=== PATIENT | female | born 1935 | race Caucasian/White ===

== ENCOUNTER → 2023-11-15 10:29 | Outpatient (REF) | payer MEDICARE, SELFPAY ==
[2023-11-15 11:15] LABS: % Basophils 0.8 % (0-2); % Eosinophils 4.8 % (0-6); % Immature Granulocytes 0.3 % (0-0.5); % Lymphocytes 14.4 % (20.5-51.1); % Monocytes 6.3 % (1.7-9.3); % Neutrophils 73.4 % (42.2-75.2); Absolute Basophils 0.1 10^3/uL (0-0.2); Absolute Eosinophils 0.3 10^3/uL (0-0.7); Absolute Lymphocytes 0.9 10^3/uL (1.2-3.4); Absolute Monocytes 0.4 10^3/uL (0.1-0.6); Absolute Neutrophils 4.6 10^3/uL (1.4-6.5); Hemoglobin 12.6 g/dL (12.0-16.0); Mean Corp Hgb Conc. 32.3 g/dL (33.0-37.0); Mean Corpuscular Hgb 29.2 pg (27.0-31.0); Mean Corpuscular Volume 90.3 fL (81.0-99.0); Mean Platelet Volume 9.9 fL (7.4-10.4); Nucleated Red Blood Cells % 0 %; Platelet Count 153 10^3/uL (130-400); Red Blood Cell Count 4.32 10^6/uL (4.20-5.40); Red Cell Dist. Width 15.5 % (11.5-14.5); White Blood Cell Count 6.3 10^3/uL (4.8-10.8)
[2023-11-15 11:50] LABS: Glycohemoglobin (HgbA1c) 6.6 % (4.0-5.6)
[2023-11-15 12:00] LABS: ALT (SGPT) < 10 U/L (0-35); AST (SGOT) 16 U/L (14-36); Alkaline Phosphatase 107 U/L (38-126); Blood Urea Nitrogen 23 mg/dl (7-17); Calcium 9.5 mg/dl (8.4-10.2); Carbon Dioxide 21 mmol/L (22-30); Chloride 107 mmol/L (98-107); Glucose 111 mg/dl (70-99); Potassium 4.3 mmol/L (3.5-5.1); Sodium 138 mmol/L (135-145); Total Bilirubin 0.5 mg/dl (0.2-1.3); eGFR 48.63
[2023-11-15 12:18] LABS: TSH Reflex To Free T4 3.14 uIU/ml (0.47-4.68)
[2023-11-19 13:53] LABS: Albumin 3.75 g/dL (3.75-5.01); SPEP IFE Reflex Not Done
== END ==
LOC: REG 10:29
PROVIDERS: ATTENDING PHYSICIAN Internal Medicine
DX: E11.22 Type 2 diabetes mellitus with diabetic chronic kidney disease (principal); N18.32 Chronic kidney disease, stage 3b; R60.0 Localized edema; B02.9 Zoster without complications; R74.8 Abnormal levels of other serum enzymes; Z68.31 Body mass index [BMI] 31.0-31.9, adult
CPT/HCPCS: 36415; 80053; 83036; 84155; 84165; 84443; 85025

== ENCOUNTER 2023-11-28 15:45 | Inpatient (IN) | payer MEDICARE, SELFPAY ==
[2023-11-27] VITALS (12 sets, daily range): BP systolic 133–233; BP diastolic 54–148; BMI 30.6; BMI 29.4
[2023-11-27 17:09] LABS: % Basophils 0.7 % (0-2); % Eosinophils 3.2 % (0-6); % Immature Granulocytes 0.5 % (0-0.5); % Lymphocytes 13.3 % (20.5-51.1); % Monocytes 5.4 % (1.7-9.3); % Neutrophils 76.9 % (42.2-75.2); Absolute Basophils 0.1 10^3/uL (0-0.2); Absolute Eosinophils 0.3 10^3/uL (0-0.7); Absolute Lymphocytes 1.2 10^3/uL (1.2-3.4); Absolute Monocytes 0.5 10^3/uL (0.1-0.6); Absolute Neutrophils 6.8 10^3/uL (1.4-6.5); Hematocrit 43.4 % (37.0-47.0); Hemoglobin 14.2 g/dL (12.0-16.0); Mean Corp Hgb Conc. 32.7 g/dL (33.0-37.0); Mean Corpuscular Hgb 29.5 pg (27.0-31.0); Mean Corpuscular Volume 90.2 fL (81.0-99.0); Mean Platelet Volume 10.2 fL (7.4-10.4); Nucleated Red Blood Cells % 0 %; Platelet Count 156 10^3/uL (130-400); Red Blood Cell Count 4.81 10^6/uL (4.20-5.40); Red Cell Dist. Width 15.6 % (11.5-14.5); White Blood Cell Count 8.9 10^3/uL (4.8-10.8)
[2023-11-27 17:37] LABS: Urine Albumin 2+ (Neg - Trace); Urine Bilirubin Negative (Negative); Urine Character Clear (Clear); Urine Color Straw; Urine Glucose Negative (Negative); Urine Ketone Negative (Negative); Urine Leukocyte Negative (Negative); Urine Nitrite Positive (Negative); Urine Occult Blood Trace (Negative); Urine Urobilinogen Negative (Neg - 1+)
[2023-11-27 18:00] LABS: Urine Bacteria Few (Negative); Urine Red Blood Cell 0-2 /HPF (0-2)
[2023-11-27] MEDS: COZAAR 50 MG PO (18:38)
[2023-11-27] MEDS: ZOFRAN 4 MG IV (18:38)
[2023-11-27] MEDS: NSS 500 IV (18:39)
[2023-11-27 19:10] LABS: Blood Urea Nitrogen 22 mg/dl (7-17); Calcium 10.1 mg/dl (8.4-10.2); Carbon Dioxide 26 mmol/L (22-30); Chloride 99 mmol/L (98-107); Estimated Creatinine Clearance 47 ml/min; Glucose 128 mg/dl (70-99); Sodium 137 mmol/L (135-145); eGFR > 60.00
--- NOTE | 2023-11-27 19:54 | ED.GENMED ---
History of Present Illness
General
Chief Complaint: Change in Mental Status
Source: patient and family (daughter)
Time Seen by Provider: 11/27/23 15:33
Nursing documentation reviewed up to this point in time: agreed with
Travel History
Have you had any contact with someone who has COVID-19?: Unable to Answer
Do you have any symptoms of coronavirus? Fever > 100 degrees, chills, cough, shortness of breath, sore throat, loss of taste or smell, muscle aches, or headache?: Unable to Answer
History of Present Illness
History of Present Illness:
Patient to ED with complaint of weakness and fatigue. Daughter reports patient has not been eating, has not been taking her meds. Daughter noted weakness yesterday and feels symptoms are much worse today. No fever/chills, recent illness. Brought
to ED via EMS for eval.
Past History
Past History
ED Past Medical History: Cancer (Cervical cancer), GERD, HTN, Hypercholesterolemia, NIDDM, Hypothyroidism and Other (Edema, history of pericarditis, pneumonia, polyps, stage III kidney disease, Cellulitis, UTI, Vertigo, PNA,)
ED Past Surgical History: Appendectomy, Gynecological (Radical hysterectomy, lumpectomy), Orthopedic (Back surgery) and Other (Cataract surgery, Lumpectomy, )
Social History
Tobacco: Former smoker
Alcohol: None
Drug: None
Personal:
Living: alone
Employment: Retired
Family History
Family History: Other
Review of Systems
Review of Systems
Allergies reviewed?: Yes
All Other Systems: ROS reviewed and negative except as documented in HPI and ROS
Constitutional: Reports no symptoms
EENT: Reports no symptoms
Respiratory: Reports no symptoms
Cardiac: Reports no symptoms
ABD/GI: Reports nausea and anorexia
: Reports no symptoms
Musculoskeletal: Reports edema (chronic BLE edema)
Skin: Reports no symptoms
Neurological: Reports no symptoms
Psychiatric: Reports no symptoms
Phy Exam
General Physical Exam
General Presentation: mild distress
General age: appears stated age
General Skin: warm and dry
General Habitus: elderly and frail
General Mental: alert
General Hydration: dry mucous membranes
Cardiovascular Exam
Cardiovascular Exam: regular rate/rhythm
Pulmonary Exam
Pulmonary Exam: lungs clear and no respiratory distress
Gastrointestinal Exam
Gastrointestinal Exam: normal bowel sounds, non tender, soft and no organomegaly
Musculoskeletal Exam
Musculoskeletal Exam: full ROM and neuro vasc intact
Skin Exam
Skin Exam: normal color, warm/dry, no rash and other (Chronic BLE edema)
Psychiatric Exam
Psychiatric Exam: normal mood/affect
Course
Orders/Labs/Results
Orders:
Orders
11/27/23 15:55
Electrocardiogram (*1) Urgent
Reason for Study: Fatigue / Weakness
CT Head W/o Iv Contrast Urgent
Comment:
Reason For Exam: change in mental status
EKG- Treatment ONCE
11/27/23 16:58
Complete Blood Count/With Diff Urgent
Urinalysis Reflex To Culture Urgent
Date Specimen was Collected: 11/27/23
Time Specimen was Collected: 16:46
Urine Microscopic Reflex Cult Urgent
Urine Culture Urgent
MÓNICA Source: U
Specimen Description:
Date Specimen was Collected: 11/27/23
Time Specimen was Collected: 16:46
11/27/23 17:38
Ondansetron Injectable [Zofran] 4 mg IV NOW STA
11/27/23 17:39
0.9% Sodium Chloride 500 ml [Nss] 500 ml IV BOLUS
11/27/23 18:25
Losartan [Cozaar] 50 mg PO NOW STA
11/27/23 18:36
Basic Metabolic Panel Urgent
11/27/23 20:51
Admit/Transfer Patient As Directed
Co-Sign Provider:
Level of Care: Observation services
Assign to:: Medical/Surgical
Physician / Group: idania
Diagnosis: weakness
Code Status As Directed
Resuscitation Status: Do not resuscitate
Reached after discussion with pt or family/Healthcare POA: Yes
DNR Bracelet Application ONCE
11/27/23 20:54
CefTRIAXone [Rocephin] 1,000 mg IV NOW STA
11/27/23 20:55
Labetalol HCl [Trandate] 10 mg IV Q6HPRN PRN
11/27/23 20:57
Sterile Water [Sterile Water For Injection] 10 ml IV NOW STA
11/27/23 20:59
COVID-19 Antigen Urgent
Source: Nasal Swab
11/27/23 21:00
Flush (0.9% Sodium Chloride) [Flush (Nss)] See Dose Instructions IV PER PROTOCOL
Abnormal Lab Results
11/27/23 11/27/23
16:58 18:36
MCHC 32.7 L g/dL
(33.0-37.0)
RDW 15.6 H %
(11.5-14.5)
Absolute Neuts (auto) 6.8 H 10^3/uL
(1.4-6.5)
Neutrophils % 76.9 H %
(42.2-75.2)
Lymphocytes % 13.3 L %
(20.5-51.1)
BUN 22 H mg/dl
(7-17)
Glucose 128 H mg/dl
(70-99)
Ur Occult Blood Reflex Trace A
(Negative)
Urine Nitrite (Reflex) Positive A
(Negative)
Urine Bacteria (Reflex) Few A
(Negative)
Urine Albumin (Reflex) 2+ A
(Neg - Trace)
11/27/23 16:58
11/27/23 18:36
Vital Signs
Initial and Last Documented VS:
Initial Vital Signs
Temp Pulse Resp BP Pulse Ox
97.5 F 75 20 193/92 98
11/27/23 15:36 11/27/23 15:36 11/27/23 15:36 11/27/23 15:36 11/27/23 15:36
Last Documented Vital Signs
Temp Pulse Resp BP Pulse Ox
97.5 F 85 12 228/134 97
11/27/23 15:36 11/27/23 18:38 11/27/23 18:15 11/27/23 18:38 11/27/23 16:15
*Radiology
Radiology exam reviewed: radiology read reviewed
*Pulse Oximetry
Patient hypoxic: no
*Critical Care Note
Total Time (30-74mins, 75-104mins- exclusive of procedures): Not Applicable
Update Note
Update Note:
Hypertensive on arrival to ED. Daughter reports patient has not been taking her meds. SHe lives in independent living and is responsible for her own medication administration and has had issues with compliance in the past. She was given her dose
of Losartan in dept and BP is beginning to come down. SHe is visibly weak in dept and unable to care for self at this time. Will admit to hospitalist for weakness, fatigue, medication noncompliance.
ED Attending Note
-
Portions of this chart may have been created with voice recognition software.� Occasional wrong word or��sound alike� substitutions may have occurred due to the inherent limitations of voice recognition software.
Discharge Plan
Departure
Patient Disposition: Admit
Date of Disposition: 11/27/23
Time of Disposition: 20:04
Presentation/result/management discussed w/ accepting MD/DO: Hospitalist
Patient with high blood pressure during this ER visit?: Yes
Condition: Fair
Covid-19: Not Applicable
Discharge Problem:
Weakness
Prescriptions:
No Action
losartan 50 MG tablet
50 mg PO QPM
atorvastatin 40 MG tablet
40 mg PO HS
aspirin 81 MG tablet,delayed release (DR/EC)
81 mg PO DAILY
levothyroxine 50 MCG tablet
50 mcg PO DAILY
furosemide 20 MG tablet
20 mg PO SUTUWE
Patient Comments:
FAMILY CONCERN PATIENT DIDNT TAKE RIGHT MEDICATION, PER PCP PATIENT WAS TO STOP HCTZ 12.5MG AND START LASIX UNSURE IS TAKING BOTH OR THE HCTZ ( PER PCP HCTZ CAUSE HYPERCALCEMIA)
cholecalciferol (vitamin D3) 1,000 UNITS tablet
1,000 units PO DAILY
melatonin 3 MG tablet
6 mg PO HS
methenamine hippurate 1 gram tablet
1 g PO BID
famotidine [Pepcid] 20 mg Tablet
20 mg PO HS
ascorbic acid (vitamin C) [Vitamin C] 500 mg Tablet
500 mg PO DAILY
Myrbetriq 50 mg tablet extended release 24 hr
50 mg PO DAILY
Referrals:
Vianey Bailon NP [Family Provider] -
Interventions
Interventions:
*Risk Screen - Suicide Last Done: 11/27/23 15:33
*General Assessment Last Done: 11/27/23 15:33
*Neglect/Abuse Screening Last Done: 11/27/23 15:33
ED- Fall Risk Assessment Last Done: 11/27/23 15:36
*ED COVID-19 Vaccine History Last Done: 11/27/23 15:33
ED- Neurological Assessment Last Done: 11/27/23 15:35
ED Swallowing Screen Last Done: 11/27/23 17:30
Discharge Date and Time
Print Language: PALAUAN
--- NOTE | 2023-11-27 20:56 | HPS.HSE ---
Addendum entered and electronically signed by Linda Wiseman MD 11/27/23 20:59:
Check COVID.
Original Note:
Family Physician
-
Family Physician: Vianey Bailon
Chief Complaint
-
weakness
History of Present Illness
88-year-old female past medical history of cervical cancer, hypertension, GERD, hypercholesteremia, diabetes, hypothyroidism, CKD 3, presenting with weakness and fatigue. As per daughter patient has been feeling generally weaker over the past few
weeks. However over the past few days she has been significantly weaker as well as having hallucinations, slurred speech without any focal neurological symptoms. Patient has a history of urine incontinence and has been urinating very frequently
recently. She supposed to take Lasix however was not taking Lasix due to urinary incontinence which has resulted increased lower extremity edema. No fevers but is having chills. She did have some nausea today and an episode of vomiting. No
diarrhea. No abdominal pain. No new medications recently.
Patient also has a history of chronic itching and has developed some excoriations over her body for which she was prescribed steroid cream.
Patient has not been compliant with her medications recently.
Patient was treated for periorbital shingles around the left eye a month ago and has some residual headache around the eye after that.
No smoking or alcohol use.
Medical History
Past Medical History
Past Medical History: Reports Other (cervical cancer, hypertension, GERD, hypercholesteremia, diabetes, hypothyroidism, CKD 3)
Past Surgical History: Reports Other (Appendectomy, Gynecological (Radical hysterectomy, lumpectomy), Orthopedic (Back surgery) and Other (Cataract surgery, Lumpectomy, ))
Social History
Tobacco: Non-smoker
Alcohol: None
Drug: None
Family History
Family History: Not pertinent
Allergies / Home Medications
Allergies reflects when Allergies were last updated in [facility].
Home Medications with original date entered in [facility]
Allergy/Medication List:
Allergies
Allergy/AdvReac Type Severity Reaction Status Date / Time
latex Allergy Rash Verified 05/22/23 19:07
Home Medications
atorvastatin 40 mg tablet 40 mg PO HS High cholesterol 10/16/18
losartan 50 mg tablet 50 mg PO QPM Blood pressure 10/16/18
aspirin 81 mg tablet,delayed release 81 mg PO DAILY Blood clot prevention/tx 09/11/20
cholecalciferol (vitamin D3) 25 mcg (1,000 unit) tablet 1,000 units PO DAILY Supplement 09/11/20
furosemide 20 mg tablet 20 mg PO SUTUWE Fluid retention/Swelling 09/11/20
levothyroxine 50 mcg tablet 50 mcg PO DAILY Thyroid 09/11/20
melatonin 3 mg tablet 6 mg PO HS SLEEP 09/11/20
ascorbic acid (vitamin C) 500 mg tablet (Vitamin C) 500 mg PO DAILY 11/27/23
famotidine 20 mg tablet (Pepcid) 20 mg PO HS 11/27/23
methenamine hippurate 1 gram tablet 1 g PO BID 11/27/23
mirabegron 50 mg tablet,extended release 24 hr (Myrbetriq) 50 mg PO DAILY 11/27/23
Review of Systems
-
History Source: Patient
A 12 point ROS was completed and negative except as noted: Yes
Constitutional: Reports No Symptoms
EENT: Reports No Symptoms
Respiratory: Reports No Symptoms
Cardiac: Reports No Symptoms
Abdomen/GI: Reports No Symptoms
: Reports See HPI
Musculoskeletal: Reports No Symptoms
Skin: Reports No Symptoms
Neurological: Reports No Symptoms
Endocrine: Reports No Symptoms
Hematologic/Lymphatic: Reports No Symptoms
Psych: Reports No Symptoms
Physical Exam
Vital Signs
Vital Signs
Temp Pulse Resp BP Pulse Ox
97.5 F 85 12 228/134 97
11/27/23 15:36 11/27/23 18:38 11/27/23 18:15 11/27/23 18:38 11/27/23 16:15
Physical Exam
General: Well Developed, Well Nourished and No Apparent Distress
HEENT: NormoCephalic, Moist mucous membranes and Atraumatic
Respiratory: Clear
Cardiac: S1/S2 and Regular Rhythm; No Murmur or Rub
GI: Soft, Non Tender, Non Distended and Normal Bowel Sounds; No Organomegaly
Rectal: Deferred by Provider
Musculoskeletal: No Clubbing, No Cyanosis and No Edema
Skin: No Rash
Neuro: Nonfocal/grossly intact
Laboratory Results
-
11/27/23 16:58
11/27/23 18:36
Laboratory Results
Total Bilirubin Cancelled 11/27/23 18:36
AST Cancelled 11/27/23 18:36
ALT Cancelled 11/27/23 18:36
Alkaline Phosphatase Cancelled 11/27/23 18:36
Data Reviewed
-
Lab Data: Labs Reviewed by me
Old Records: Reviewed
Impression/Plan
-
IMPRESSION:
PLAN:
# Weakness/metabolic encephalopathy strongly suggestive of early UTI versus hypertensive encephalopathy due to medication noncompliance
-CT head shows no acute abnormality
-Urinalysis not suggestive of infection however symptoms strongly suggest UTI
-Check urine culture
-Empiric ceftriaxone dose
-Hold melatonin
-No focal deficits to suggest stroke, although consider MRI if all workup negative
# Hypertensive urgency due to medication noncompliance
-Continue prophylactic aspirin
-Resume losartan which she has not been compliant with
-As needed labetalol
# Diffuse body excoriation secondary to itching
-Continue steroid cream
Recent shingles around the left eye
-Completed treatment of month ago
History of cervical cancer
GERD
-Continue Pepcid
Hypercholesterolemia
-Continue statin
Type 2 diabetes
Hypothyroidism
-Continue levothyroxine
CKD 3
-Renal function at baseline
History of incontinence
-Continue Myrbetriq
-Bladder scan protocol
Lower extremity edema
-Continue Lasix
DNR/DNI
DVT prophylaxis�heparin
Regular diet
[2023-11-27] MEDS: ROCEPHIN 1000 MG IV (21:11)
[2023-11-27] MEDS: STERILE WATER FOR INJECTION 10 ML IV (21:12)
[2023-11-27] MEDS: TRANDATE 10 MG IV (21:16)
[2023-11-27] MEDS: FLUSH (NSS) 1 FLUSH IV (21:19)
[2023-11-27 21:46] LABS: COVID-19 Antigen Negative (Negative)
[2023-11-27] MEDS: PEPCID 20 MG PO (23:50)
[2023-11-27] MEDS: LIPITOR 40 MG PO (23:50)
--- NOTE | 2023-11-28 00:40 | PTCARENOTE ---
Patient received from the ED via stretcher. Patient pulled over onto the bed by staff. AAOx3 but forgetful. No complaints of pain at this time. VSS. Patient incontinent of stool and urine. Desenex ordered BID per nursing protocol for abdomen and
groin. Patient made comfortable. Call mora is within reach.
[2023-11-28] MEDS: SYNTHROID 50 MCG PO (05:06)
[2023-11-28 06:00] VITALS: BMI 29.5
[2023-11-28 07:25] LABS: % Basophils 0.6 % (0-2); % Eosinophils 1.7 % (0-6); % Immature Granulocytes 0.4 % (0-0.5); % Lymphocytes 16.9 % (20.5-51.1); % Monocytes 8.3 % (1.7-9.3); % Neutrophils 72.1 % (42.2-75.2); Absolute Basophils 0.1 10^3/uL (0-0.2); Absolute Eosinophils 0.1 10^3/uL (0-0.7); Absolute Lymphocytes 1.4 10^3/uL (1.2-3.4); Absolute Monocytes 0.7 10^3/uL (0.1-0.6); Absolute Neutrophils 5.8 10^3/uL (1.4-6.5); Hematocrit 37.1 % (37.0-47.0); Hemoglobin 12.2 g/dL (12.0-16.0); Mean Corp Hgb Conc. 32.9 g/dL (33.0-37.0); Mean Corpuscular Hgb 29.6 pg (27.0-31.0); Mean Platelet Volume 10.6 fL (7.4-10.4); Nucleated Red Blood Cells % 0 %; Platelet Count 157 10^3/uL (130-400); Red Blood Cell Count 4.12 10^6/uL (4.20-5.40); Red Cell Dist. Width 15.9 % (11.5-14.5); White Blood Cell Count 8.1 10^3/uL (4.8-10.8)
[2023-11-28 07:55] LABS: ALT (SGPT) 10 U/L (0-35); AST (SGOT) 14 U/L (14-36); Albumin 3.4 g/dl (3.5-5.0); Alkaline Phosphatase 93 U/L (38-126); Blood Urea Nitrogen 25 mg/dl (7-17); Calcium 9.3 mg/dl (8.4-10.2); Carbon Dioxide 27 mmol/L (22-30); Chloride 101 mmol/L (98-107); Estimated Creatinine Clearance 30 ml/min; Glucose 127 mg/dl (70-99); Potassium 4.1 mmol/L (3.5-5.1); Sodium 135 mmol/L (135-145); Total Bilirubin 0.6 mg/dl (0.2-1.3); Total Protein 6.3 g/dl (6.3-8.2); eGFR 36.41
[2023-11-28 08:06] VITALS: BP 140/61
[2023-11-28] MEDS: HEPARIN 5000 UNITS SC ×2 (08:55→20:23)
[2023-11-28] MEDS: ASPIR LOW (ENTERIC COATED) 81 MG PO (08:55)
[2023-11-28] MEDS: DETROL LA 4 MG PO (08:55)
[2023-11-28] MEDS: VITAMIN C 500 MG PO (08:55)
[2023-11-28] MEDS: VITAMIN D3 (cholecalciferol) 25 MCG PO (08:55)
[2023-11-28] MEDS: LASIX 20 MG PO (09:08)
[2023-11-28] MEDS: DESENEX/MITRAZOL/ZEASORB 1 APPLIC TOPICAL ×2 (09:09→20:25)
[2023-11-28 10:26] VITALS: BP 138/79; PULSE 79; O2SAT 98
[2023-11-28 10:39] VITALS: BP 138/79; PULSE 68; O2SAT 97
--- NOTE | 2023-11-28 11:14 | W.PN.HOSP.TC ---
Today's Communication/Plan
-
.
Assessment / Plan
Assessment / Plan
Physical Exam
General: Well Developed, Well Nourished and No Apparent Distress
HEENT: Normocephalic, Moist mucous membranes and Atraumatic
Respiratory: Clear
Cardiac: S1/S2 and Regular Rhythm; No Murmur or Rub
GI: Soft, Non Tender, Non Distended and Normal Bowel Sounds; No Organomegaly
Rectal: No rectal bleeding
Musculoskeletal: No Clubbing, No Cyanosis and No Edema
Skin: No Rash
Neuro: AAOX3, she followed commands.
Psych: no agitation
# Weakness/ Toxic metabolic encephalopathy strongly suggestive of early UTI versus hypertensive encephalopathy due to medication noncompliance
She feels better, less weak.
-Urinalysis is suggestive of infection.
- Urine culture is E coli
-c/w IV ceftriaxone dose
-Held melatonin
-No focal deficits to suggest stroke,
CT head showed moderate diffuse cerebral and cerebellar volume loss. Mild white matter leukoaraiosis in both cerebral hemispheres.
# Hypertensive urgency due to medication noncompliance
AM BP 140/61
-Continue prophylactic aspirin
-Resume losartan which she has not been compliant with
-As needed labetalol
# Diffuse body excoriation secondary to itching
-Continue steroid cream
Recent shingles around the left eye
-Completed treatment of month ago
Sometimes she experience pain in eye, will add PRN Gabapentin.
#History of cervical cancer
# NAFLD (nonalcoholic fatty liver disease)
#GERD
-Continue Pepcid
#Hypercholesterolemia
-Continue statin
#Type 2 diabetes history
HGB A1C was 6.6 on 11/15/23
No hypoglycemia
Not on TX.
Hypothyroidism
-Continue levothyroxine
# CKD 3b/ History of incontinence
IRENE today with creatinine at 1.4 from 0.9
Check bladder scan, renal US
Continue Myrbetriq
-Bladder scan protocol, will check with nursing staff
Lower extremity edema
-Continue Lasix
DNR/DNI
DVT prophylaxis�heparin
Regular diet
�Total time spent to see patient, examine the patient on the floor, review data and lab results, discuss treatment plan with patient, nursing staff around 55 minutes
Anticipated Discharge: > 48 hours
Subjective/Interval History
-
Date of Service: November 28, 2023
No chest pain
No sob
No abd pain
Objective Data
-
Labs:
Laboratory Results
11/28/23
06:42
WBC 8.1
Hgb 12.2
Hct 37.1
Plt Count 157
Sodium 135
Potassium 4.1
Chloride 101
Carbon Dioxide 27
BUN 25 H
Creatinine 1.4 H
Glucose 127 H
Calcium 9.3
Total Bilirubin 0.6
AST 14
ALT 10
Alkaline Phosphatase 93
Vital Signs:
Vital Signs
Temp Pulse Resp BP Pulse Ox
97.9 F 76 18 140/61 96
11/28/23 08:06 11/28/23 09:08 11/28/23 08:06 11/28/23 09:08 11/28/23 08:06
I&O
11/27/23 11/28/23 11/29/23
06:59 06:59 06:59
Intake Total 480 / 480
Balance 480 / 480
--- NOTE | 2023-11-28 15:30 | PTCARENOTE ---
patient was received in bed - awake, alert and verbally responsive with some forgetfulness. patient is hard of hearing and can make her needs known. patient did not have any behavioral/verbal indicators of discomfort or pain. patient continues to
have a good appetite for dinner. fluids encouraged throughout this nurse's shift. patient remains incontinent of bladder and and is provided incontinence care. patient's bed is in the lowest position possible with call mora, telephone and television
remote within reach
[2023-11-28 15:45] VITALS: BP 120/54
--- NOTE | 2023-11-28 16:43 | CM ---
Alert awake oriented patient who lives with at [facility] .She is independent in all activities of daily living.Offered VN she would like [facility].TRISTA Starkey at bedside .Fernandez letter explained given copy. Pt declined to sign.
Walker
[facility]
PCP Dr Bailon
PLAN Return to [facility] with [facility]
[2023-11-28 17:41] LABS: Glucose - Point of Care 127 mg/dl (70-99)
[2023-11-28] MEDS: COZAAR 50 MG PO (17:51)
[2023-11-28] MEDS: LIPITOR 40 MG PO (21:31)
[2023-11-28] MEDS: PEPCID 20 MG PO (21:31)
[2023-11-28 21:41] LABS: Glucose - Point of Care 116 mg/dl (70-99)
[2023-11-28 23:25] VITALS: BP 156/52
--- NOTE | 2023-11-29 05:13 | DOWNTIME ---
There was a [employer] Laboratory Technician Downtime on 11/29/2023 from 0100 to 11/29/2023 at 0439. Downtime documentation of patient's care, including medication administrations, has been reconciled in the electronic record per guidelines. Refer to the
patient's paper chart under the miscellaneous tab to see printed paper medication records and downtime forms.
[2023-11-29] MEDS: SYNTHROID 50 MCG PO (05:46)
[2023-11-29 06:00] VITALS: BMI 29.5
[2023-11-29 07:25] VITALS: BP 165/74
[2023-11-29 07:38] LABS: Glucose - Point of Care 111 mg/dl (70-99)
[2023-11-29] MEDS: VITAMIN C 500 MG PO (08:03)
[2023-11-29] MEDS: HEPARIN 5000 UNITS SC ×2 (08:03→19:44)
[2023-11-29] MEDS: ASPIR LOW (ENTERIC COATED) 81 MG PO (08:03)
[2023-11-29] MEDS: DETROL LA 4 MG PO (08:03)
[2023-11-29] MEDS: VITAMIN D3 (cholecalciferol) 25 MCG PO (08:03)
[2023-11-29] MEDS: DESENEX/MITRAZOL/ZEASORB 1 APPLIC TOPICAL ×2 (08:04→19:44)
[2023-11-29] MEDS: LASIX 20 MG PO (08:41)
[2023-11-29 09:24] LABS: Blood Urea Nitrogen 32 mg/dl (7-17); Calcium 9.1 mg/dl (8.4-10.2); Carbon Dioxide 27 mmol/L (22-30); Chloride 100 mmol/L (98-107); Estimated Creatinine Clearance 24 ml/min; Glucose 110 mg/dl (70-99); Potassium 4.9 mmol/L (3.5-5.1); Sodium 136 mmol/L (135-145); eGFR 28.84
[2023-11-29 10:06] LABS: Vitamin B12 348 pg/ml (239-931)
[2023-11-29 11:22] LABS: Glucose - Point of Care 133 mg/dl (70-99)
--- NOTE | 2023-11-29 11:35 | W.PN.HOSP.TC ---
Today's Communication/Plan
-
.
Assessment / Plan
Assessment / Plan
Physical Exam
General: Well Developed, Well Nourished and No Apparent Distress
HEENT: Normocephalic, Moist mucous membranes and Atraumatic
Respiratory: Clear
Cardiac: S1/S2 and Regular Rhythm; No Murmur or Rub
GI: Soft, Non Tender, Non Distended and Normal Bowel Sounds; No Organomegaly
Rectal: No rectal bleeding
Musculoskeletal: No Clubbing, No Cyanosis and No Edema
Skin: No Rash
Neuro: AAOX1-2, forgetful at times, she followed commands.
Psych: no agitation
# Weakness/ Toxic metabolic encephalopathy strongly suggestive of early UTI versus hypertensive encephalopathy due to medication noncompliance
per daughter, hx of progressive memory issues
She feels better, less weak.
-Urinalysis is suggestive of infection.
- Urine culture is E coli
-c/w IV ceftriaxone dose
-Held melatonin
-No focal deficits to suggest stroke,
CT head showed moderate diffuse cerebral and cerebellar volume loss. Mild white matter leukoaraiosis in both cerebral hemispheres.
WIll do MRI brain as per daughter, gait worsening in last few weeks.
# Hypertensive urgency due to medication noncompliance
AM BP 140/61
-Continue prophylactic aspirin
- will change to oral nifedipine for now due to worsening Creatinine
-As needed labetalol
# Diffuse body excoriation secondary to itching
-Continue steroid cream
Recent shingles around the left eye
-Completed treatment of month ago
Sometimes she experience pain in eye, will add PRN Gabapentin.
#History of cervical cancer
# NAFLD (nonalcoholic fatty liver disease)
#GERD
-Continue Pepcid
#Hypercholesterolemia
-Continue statin
#Type 2 diabetes history
HGB A1C was 6.6 on 11/15/23
No hypoglycemia
Not on TX.
Hypothyroidism
-Continue levothyroxine
# CKD 3b/ History of incontinence
IRENE today with creatinine at 1.7 from 0.9
Stop Losartan, star Nifedipine
Check bladder scan, will ask nurses t document
Renal US No hydronephrosis on either side. Bilateral nephrolithiasis without hydronephrosis.
Continue Myrbetriq
Lower extremity edema
-Continue Lasix
DNR/DNI
DVT prophylaxis�heparin
Regular diet
�Total time spent to see patient, examine the patient on the floor, review data and lab results, discuss treatment plan with patient, daughter, nursing staff around 57 minutes
Anticipated Discharge: 24 - 48 hours
Subjective/Interval History
-
Date of Service: November 29, 2023
No chest pain
No sob
No fevers
Objective Data
-
Labs:
Laboratory Results
11/29/23
07:18
Sodium 136
Potassium 4.9
Chloride 100
Carbon Dioxide 27
BUN 32 H
Creatinine 1.7 H
Glucose 110 H
Calcium 9.1
Vital Signs:
Vital Signs
Temp Pulse Resp BP Pulse Ox
97.3 F 73 18 156/52 98
11/29/23 07:25 11/29/23 08:41 11/29/23 07:25 11/29/23 08:41 11/29/23 10:34
I&O
11/28/23 11/29/23 11/30/23
06:59 06:59 06:59
Intake Total 480 / 480 1859
Balance 480 / 480 1859
[2023-11-29] MEDS: ROCEPHIN 1000 MG IV (11:59)
[2023-11-29] MEDS: STERILE WATER FOR INJECTION 10 ML IV (11:59)
[2023-11-29] MEDS: PROCARDIA XL (EXTENDED RELEASE) 30 MG PO (11:59)
[2023-11-29 15:15] VITALS: BP 136/73
[2023-11-29 16:47] LABS: Glucose - Point of Care 120 mg/dl (70-99)
[2023-11-29] MEDS: PEPCID 20 MG PO (19:44)
[2023-11-29] MEDS: LIPITOR 40 MG PO (19:44)
[2023-11-29 21:03] LABS: Glucose - Point of Care 133 mg/dl (70-99)
[2023-11-29 23:59] VITALS: BP 157/76
[2023-11-30] MEDS: SYNTHROID 50 MCG PO (05:52)
[2023-11-30 06:00] VITALS: BMI 29.0
[2023-11-30 07:43] LABS: Glucose - Point of Care 125 mg/dl (70-99)
[2023-11-30 08:13] VITALS: BP 150/73
[2023-11-30] MEDS: VITAMIN C 500 MG PO (09:08)
[2023-11-30] MEDS: ASPIR LOW (ENTERIC COATED) 81 MG PO (09:08)
[2023-11-30] MEDS: PROCARDIA XL (EXTENDED RELEASE) 30 MG PO (09:08)
[2023-11-30] MEDS: HEPARIN 5000 UNITS SC ×2 (09:09→19:59)
[2023-11-30] MEDS: DETROL LA 4 MG PO (09:09)
[2023-11-30] MEDS: VITAMIN D3 (cholecalciferol) 25 MCG PO (09:09)
[2023-11-30] MEDS: DESENEX/MITRAZOL/ZEASORB 1 APPLIC TOPICAL ×2 (09:10→19:58)
[2023-11-30 09:20] LABS: Blood Urea Nitrogen 32 mg/dl (7-17); Calcium 9.7 mg/dl (8.4-10.2); Carbon Dioxide 27 mmol/L (22-30); Chloride 98 mmol/L (98-107); Estimated Creatinine Clearance 29 ml/min; Glucose 128 mg/dl (70-99); Potassium 4.1 mmol/L (3.5-5.1); Sodium 136 mmol/L (135-145); eGFR 36.41
--- NOTE | 2023-11-30 09:27 | W.PN.HOSP.TC ---
Today's Communication/Plan
-
.
Assessment / Plan
Assessment / Plan
Physical Exam
General: Well Developed, Well Nourished and No Apparent Distress
HEENT: Normocephalic, Moist mucous membranes and Atraumatic
Respiratory: Clear
Cardiac: S1/S2 and Regular Rhythm; No Murmur or Rub
GI: Soft, Non Tender, Non Distended and Normal Bowel Sounds; No Organomegaly
Rectal: No rectal bleeding
Musculoskeletal: No Clubbing, No Cyanosis and No Edema
Skin: No Rash
Neuro: AAOX1-2, forgetful at times, she followed commands.
Psych: no agitation
# Weakness/ Toxic metabolic encephalopathy strongly suggestive of early UTI versus hypertensive encephalopathy due to medication noncompliance
per daughter, hx of progressive memory issues with some confusion and hallucination/paranoia at times, progressed over last 1-2 months.
She feels better, less weak.
-we treated UTI but doubt the culprit although it will certainly exacerbate confusion.
-Held melatonin
-No focal deficits to suggest stroke,
CT head showed moderate diffuse cerebral and cerebellar volume loss. Mild white matter leukoaraiosis in both cerebral hemispheres.
MRI brain with global advanced atrophy
I had long discussion with the daughter at bedside. She is concerned and requested neurology evaluation. Discussed with neurologist on-call, input appreciated
# Urinary tract infection with E. coli. Uncomplicated, continue with Rocephin
No fever. No leukocytosis. No dysuria or abdominal pain
Check bladder scan
# Chronic heart failure with preserved ejection fraction
c/w Lasix, change to Daily which will help with high BP, leg edema
No sob, No hypoxia.
No chest pain
Primary mottle lay up operator Dr Jay Smith.
# Hypertensive urgency due to medication noncompliance
AM BP 140/61
-Continue prophylactic aspirin
-Changed to oral nifedipine and continue with Lasix.
-As needed labetalol
# Diffuse body excoriation secondary to itching
-Continue steroid cream
Recent shingles around the left eye
-Completed treatment of month ago
Sometimes she experience pain in eye, will add PRN Gabapentin.
#History of cervical cancer
# NAFLD (nonalcoholic fatty liver disease)
#GERD
-Continue Pepcid
#Hypercholesterolemia
-Continue statin
#Type 2 diabetes history
HGB A1C was 6.6 on 11/15/23
No hypoglycemia
Not on TX.
Hypothyroidism
-Continue levothyroxine
# CKD 3b/ History of incontinence
IRENE today with creatinine at 1.7 from 0.9. Today is 1.4, good improvement
Stopped Losartan, she is on nifedipine
Check bladder scan, will ask nurses to document
Renal US No hydronephrosis on either side. Bilateral nephrolithiasis without hydronephrosis.
Continue Myrbetriq upon discharge
Lower extremity edema
-Continue Lasix
DNR/DNI
DVT prophylaxis�heparin
Regular diet
�Total time spent to see patient, examine the patient on the floor, review data and lab results, discuss treatment plan with patient, daughter, nursing staff around 67 minutes
Anticipated Discharge: 24 - 48 hours
Subjective/Interval History
-
Date of Service: November 30, 2023
No pain issues
no headache
daughter at bed side
Objective Data
-
Labs:
Laboratory Results
11/30/23
07:15
Sodium 136
Potassium 4.1
Chloride 98
Carbon Dioxide 27
BUN 32 H
Creatinine 1.4 H
Glucose 128 H
Calcium 9.7
Vital Signs:
Vital Signs
Temp Pulse Resp BP Pulse Ox
97.8 F 74 18 150/73 98
11/30/23 08:13 11/30/23 09:08 11/30/23 08:13 11/30/23 09:08 11/30/23 08:13
I&O
11/29/23 11/30/23 12/01/23
06:59 06:59 06:59
Intake Total 1860 / 0 960 / 960
Balance 1860 / 1860 960 / 960
--- NOTE | 2023-11-30 10:05 | CON.NEURO4 ---
Addendum entered and electronically signed by Best Liang MD 11/30/23 14:52:
I saw and evaluated the patient I reviewed the note by Vianey chung and agree with the findings the following comments:
88-year-old woman with a past ministry of cervical cancer, GERD, hyperlipidemia diabetes hypothyroidism and CKD presented to hospital on 11/26 with generalized weakness fatigue confusion and hallucinations. She has had some mild degree of agitation
and confusion here in the hospital which is not her norm. Daughter noticed that her mental status has not been quite right for the past 1 to 2 weeks, still not currently at baseline.
Patient lives on her own at [facility] and is in an independent apartment. Daughter reports that she has been having some Eh about some difficulty with short-term memory difficulties and asking repeated questions and reminding of things and
also has some concerns that she might be taking her medications improperly or forgetting to do so. Patient has been a bit anxious and depressed here in the hospital as well sometimes irritable.
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. She had moved to [facility] around 3 years ago there have been some concerns about a fall as
well as it being an easier place to live for her.
Neurologic examination patient is wide-awake and alert conversant there is no evidence of aphasia she obeys commands briskly comprehends three-step commands and commands crossing the midline with no evidence of neglect praxis is normal. She has
some difficulty in more complex commands with some difficulty reciting the months of the year backwards demonstrating some inattention. She is oriented to president and previous presidents. Fund of knowledge is good.
Cranial nerves motor function and reflexes all
Brain MRI with no acute or chronic infarcts there is advanced global atrophy does not appear to be out of proportion to the patient's age no evidence of subdural hematoma or ventriculomegaly/hydrocephalus
Assessment: By history suspicious for a baseline mild cognitive impairment, most likely there is a urinary tract infection producing some delirium on top of this.
Recommendations
-Minimize sedating medications here as able
-Attempted trying to keep a regular sleep schedule with stimulation and sunlight during the day and avoiding naps during the day
-Set the expectation that delirium can sometimes take days to several weeks to resolve and does not always completely resolve
-Nonurgently would obtain neurology follow-up in approximately 6 to 8 weeks where we would do some further memory testing (MMSE or Colbert)
Original Note:
Consultation - Neurology 4
-
CONSULTING PHYSICIAN: Dr. Liang
REFERRING PHYSICIAN: Dr. Dodson
DICTATED BY: MICHELLE Price
DATE/TIME OF REQUEST: 11/30/2023 0800
DATE/TIME OF CONSULTATION: 11/30/2023 1005
Reason for Consultation: increased confusion
History of Present Illness:
This is a 88 year old female patient with past medical history of cervical cancer, hypertension, GERD, hyperlipidemia, diabetes Hypothyroidism, and CKD 3 who presented to the hospital on 11/27/2023 with increased confusion generalized weakness
fatigue and hallucinations. Daughter reported that symptoms had started over the past few weeks. She does have a history of urinary incontinence and stopped taking her Lasix due to this. She may have also been noncompliant with her other
medications. She was found to have a UTI as well as significant hypertension while in the ER. Since admission she has continued to have increased confusion concerning her daughter. Patient reports she is having recall of suppressed memories
causing increased anxiety. CT of the head and MRI of the brain not showing structural cause for acute confusion. Prior to recent weeks she was independent. She does live at [facility] but is in an independent apartment. Daughter reports that
she has been paying her own bills and takes care of all ADLs on her own. Per nursing and daughter she is having hard time following directions and is impulsive. Per daughter memory has not been an issue.
Past Medical History
Past Medical History: Reports Other (cervical cancer, hypertension, GERD, hypercholesteremia, diabetes, hypothyroidism, CKD 3)
Past Surgical History: Reports Other (Appendectomy, Gynecological (Radical hysterectomy, lumpectomy), Orthopedic (Back surgery) and Other (Cataract surgery, Lumpectomy, ))
Social History
Tobacco: Non-smoker
Alcohol: None
Drug: None
Lives in an independent apartment at [facility]
Family History
Family History: Not pertinent
Allergies: latex
Home Medications: see below
Review of Symptoms:
Patient denies any fever, headache, chest pain, shortness of breath, GI or symptoms.
Vital Signs:
see below
Physical Exam:
The patient is afebrile, heart sounds S1 and S2 are regular, no dyspnea.
Neurologic Examination:
The patient is awake, alert and oriented x 3. She is able to follow commands and answer most questions appropriately. There is no aphasia or dysarthria. Tangential at times. On cranial nerve assessment, pupils are 3 mm bilateral, round and
reactive to light and accommodation. Visual cooley are full. Extraocular movements are intact. Facial sensations are intact and bilaterally symmetrical, there is no facial asymmetry. Hearing is intact bilaterally to normal conversation volume.
Tongue palate and uvula are midline. Sternocleidomastoid strengths are full bilaterally. Motor strengths are 5/5 bilateral upper and lower extremities on medical research Gipsy scale. There is no drift or involuntary movement noted. Deep tendon
reflexes are 1+ bilateral upper and lower extremities and Babinski is absent bilaterally. Sensations of pain, touch, temperature and vibration are intact and bilaterally symmetrical. There was no extinction noted on double simultaneous stimulation.
Coordination is intact by finger to nose bilaterally.
Lab Results: see below
Neuro Imaging:
CT head-
MRI Brain 11/29/2023-
No acute infarct. Stable advanced global atrophy.
Relatively minor chronic microvascular white matter senescent changes.
Impression:
JUAN FARRELL is a 88 year old F who has presented to the hospital with increased weakness and confusion.
Differentials for the patient's presentation include likely TME in the setting of UTI and underlying cognitive deficits. MRI brain with acute no structural cause change of confusion
Recommendations:
-Reviewed MRI with no acute structural cause of confusion
-No further neurologic imaging/studies needed at this time
-Antibiotics and treatment of UTI per primary medical team
-goal normotension
-start B12 supplementation as B12 level 348
-Continue PT/OT and speech therapy
-Will likely benefit from outpatient neuropsychological testing and possible memory stabilizing medications
-follow up with neurology as an outpatient in 6-8 weeks
Discussed patient care with: Dr. Liang, patient, nursing and daughter
Medication and Allergies
Home Medications
Home Medications
�Medication �Instructions �Recorded
atorvastatin 40 mg tablet 40 mg PO HS High cholesterol 10/16/18
losartan 50 mg tablet 50 mg PO QPM Blood pressure 10/16/18
aspirin 81 mg tablet,delayed 81 mg PO DAILY Blood clot 09/11/20
release prevention/tx
cholecalciferol (vitamin D3) 25 1,000 units PO DAILY Supplement 09/11/20
mcg (1,000 unit) tablet
furosemide 20 mg tablet 20 mg PO SUTUWE Fluid 09/11/20
retention/Swelling
levothyroxine 50 mcg tablet 50 mcg PO DAILY Thyroid 09/11/20
melatonin 3 mg tablet 6 mg PO HS SLEEP 09/11/20
ascorbic acid (vitamin C) 500 mg 500 mg PO DAILY Supplement 11/27/23
tablet (Vitamin C)
famotidine 20 mg tablet (Pepcid) 20 mg PO HS Gastrointestinal Issue 11/27/23
methenamine hippurate 1 gram tablet 1 g PO BID Urinary Issue 11/27/23
mirabegron 50 mg tablet,extended 50 mg PO DAILY Urinary Issue 11/27/23
release 24 hr (Myrbetriq)
Allergies
Allergies
Allergy/AdvReac Type Severity Reaction Status Date / Time
latex Allergy Rash Verified 05/22/23 19:07
Vital Signs and Labs
-
Vital Signs and Labs:
Vital Signs
Temp Pulse Resp BP Pulse Ox
97.8 F 74 18 150/73 98
11/30/23 08:13 11/30/23 09:08 11/30/23 08:13 11/30/23 09:08 11/30/23 08:13
Lab Results
11/28/23 06:42
11/30/23 07:15
Sodium 136 mmol/L (135-145) 11/30/23 07:15
Potassium 4.1 mmol/L (3.5-5.1) 11/30/23 07:15
BUN 32 mg/dl (7-17) H 11/30/23 07:15
Glucose 128 mg/dl (70-99) H 11/30/23 07:15
Calcium 9.7 mg/dl (8.4-10.2) 11/30/23 07:15
Vitamin B12 348 pg/ml (239-931) 11/29/23 07:18
[2023-11-30] MEDS: STERILE WATER FOR INJECTION 10 ML IV (12:00)
[2023-11-30] MEDS: ROCEPHIN 1000 MG IV (12:00)
[2023-11-30 12:12] LABS: Glucose - Point of Care 123 mg/dl (70-99)
[2023-11-30] MEDS: VITAMIN B-12 1000 MCG PO (14:54)
--- NOTE | 2023-11-30 16:11 | CM ---
PT OT recommended [facility] at [facility]
Spoke with pt rodrigue and david about PT OT.
Pt did consent to going to [facility] for private room rehab.
She has medicare.
PLAN To [facility] when medically ready
[2023-11-30 16:19] VITALS: BP 138/53
[2023-11-30 16:28] LABS: Glucose - Point of Care 169 mg/dl (70-99)
[2023-11-30] MEDS: LIPITOR 40 MG PO (19:59)
[2023-11-30] MEDS: PEPCID 20 MG PO (19:59)
[2023-11-30 21:20] LABS: Glucose - Point of Care 135 mg/dl (70-99)
[2023-11-30 23:55] VITALS: BP 152/68
[2023-12-01 06:00] VITALS: BMI 29.1
[2023-12-01] MEDS: SYNTHROID 50 MCG PO (06:03)
[2023-12-01 07:30] LABS: Glucose - Point of Care 121 mg/dl (70-99)
[2023-12-01 07:50] LABS: Blood Urea Nitrogen 29 mg/dl (7-17); Calcium 9.3 mg/dl (8.4-10.2); Carbon Dioxide 27 mmol/L (22-30); Chloride 103 mmol/L (98-107); Estimated Creatinine Clearance 32 ml/min; Glucose 118 mg/dl (70-99); Potassium 4.1 mmol/L (3.5-5.1); Sodium 135 mmol/L (135-145)
[2023-12-01 08:15] VITALS: BP 173/66
[2023-12-01] MEDS: PROCARDIA XL (EXTENDED RELEASE) 30 MG PO (09:13)
[2023-12-01] MEDS: ASPIR LOW (ENTERIC COATED) 81 MG PO (09:14)
[2023-12-01] MEDS: DETROL LA 4 MG PO (09:14)
[2023-12-01] MEDS: HEPARIN 5000 UNITS SC (09:15)
[2023-12-01] MEDS: VITAMIN D3 (cholecalciferol) 25 MCG PO (09:15)
[2023-12-01] MEDS: VITAMIN C 500 MG PO (09:15)
[2023-12-01] MEDS: VITAMIN B-12 1000 MCG PO (09:16)
[2023-12-01] MEDS: LASIX 20 MG PO (09:17)
[2023-12-01] MEDS: DESENEX/MITRAZOL/ZEASORB 1 APPLIC TOPICAL (09:17)
--- NOTE | 2023-12-01 11:23 | W.PN.HOSP.TC ---
Addendum entered and electronically signed by Helena Dodson MD 12/01/23 13:43:
Addendum
Met with daughter at the bedside. Discharge directions discussed with family.
Discussed with neurologist earlier, discharge plan discussed with case reviewer.
Total discharge time spent to see patient, examine the patient on the floor, review data and lab results, discuss discharge plan with patient, daughter nursing staff around 65 minutes
Original Note:
Today's Communication/Plan
-
dc
Assessment / Plan
Assessment / Plan
Physical Exam
General: Well Developed, Well Nourished and No Apparent Distress
HEENT: Normocephalic, Moist mucous membranes and Atraumatic
Respiratory: Clear
Cardiac: S1/S2 and Regular Rhythm; No Murmur or Rub
GI: Soft, Non Tender, Non Distended and Normal Bowel Sounds; No Organomegaly
Rectal: No rectal bleeding
Musculoskeletal: No Clubbing, No Cyanosis and No Edema
Skin: No Rash
Neuro: AAOX1-2, forgetful at times, she followed commands.
Psych: no agitation
# Weakness/ Toxic metabolic encephalopathy strongly suggestive of early UTI versus hypertensive encephalopathy due to medication noncompliance
She seems to approach her baseline. No agitation. No delirium.
Suspect underlying mild cognitive impairment with some delirium from both UTI and hospitalization. Cannot rule out possible Alzheimer's dementia. Cognitive function and subsequent diagnoses
Patient reports that hospital was making her uncomfortable and confused more
She feels better, less weak.
-we treated UTI .
-Held melatonin
-No focal deficits to suggest stroke,
CT head showed moderate diffuse cerebral and cerebellar volume loss. Mild white matter leukoaraiosis in both cerebral hemispheres.
MRI brain with global advanced atrophy
Appreciate neurology input
# Urinary tract infection with E. coli. Uncomplicated, continue with Rocephin
No fever. No leukocytosis. No dysuria or abdominal pain
No retention on bladder scan
# Chronic heart failure with preserved ejection fraction
c/w Lasix, changed to Daily which will help with high BP, leg edema
No sob, No hypoxia.
No chest pain
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
# Hypertensive urgency due to medication noncompliance
AM BP 173/66. Will increase nifedipine. Continue with daily Lasix for now. Stop losartan with good improvement in creatinine
-Continue prophylactic aspirin
-Changed to oral nifedipine and continue with Lasix.
-As needed labetalol
# Diffuse body excoriation secondary to itching
-Continue steroid cream
Recent shingles around the left eye
-Completed treatment of month ago
Sometimes she experience pain in eye, will add PRN Gabapentin.
#History of cervical cancer
# NAFLD (nonalcoholic fatty liver disease)
#GERD
-Continue Pepcid
#Hypercholesterolemia
-Continue statin
#Type 2 diabetes history
HGB A1C was 6.6 on 11/15/23
No hypoglycemia
Not on TX.
Hypothyroidism
-Continue levothyroxine
# CKD 3b/ History of incontinence
IRENE creatinine went up to 1.7 from 0.9. Today is 1.3, good improvement
Stopped Losartan, she is on nifedipine
No retention on bladder scan
Renal US No hydronephrosis on either side. Bilateral nephrolithiasis without hydronephrosis.
Continue Myrbetriq upon discharge
Lower extremity edema
-Continue Lasix
DNR/DNI
DVT prophylaxis�heparin
Regular diet
�Total time spent to see patient, examine the patient on the floor, review data and lab results, discuss treatment plan with patient, nursing staff around 57 minutes
Anticipated Discharge: Today
Subjective/Interval History
-
Date of Service: December 01, 2023
No pain in chest r abdomen
Pt wants to leave the hospital because it is making her confused and uncomfortable
Objective Data
-
Labs:
Laboratory Results
12/01/23
06:35
Sodium 135
Potassium 4.1
Chloride 103
Carbon Dioxide 27
BUN 29 H
Creatinine 1.3 H
Glucose 118 H
Calcium 9.3
Vital Signs:
Vital Signs
Temp Pulse Resp BP Pulse Ox
98 F 75 16 173/66 95
12/01/23 08:15 12/01/23 08:15 12/01/23 08:15 12/01/23 08:15 12/01/23 08:15
I&O
11/30/23 12/01/23 12/02/23
06:59 06:59 06:59
Intake Total 960 / 960 1140 / 1140
Balance 960 / 960 1140 / 1140
[2023-12-01] MEDS: STERILE WATER FOR INJECTION 10 ML IV (11:48)
[2023-12-01] MEDS: ROCEPHIN 1000 MG IV (11:48)
[2023-12-01 11:55] LABS: Glucose - Point of Care 107 mg/dl (70-99)
--- NOTE | 2023-12-01 12:41 | CM ---
Patient seen at bedside with daughter also present. Patient signed IMM and copy placed on chart. Please call report to [phone]. Patient daughter to transport patient via car. CM notified physician that patient daughter would like
a call and update, CM will continue to follow for discharge planning needs.
Plan; transfer to [facility] today.
--- NOTE | 2023-12-01 13:31 | W.DCSUMMARY ---
Discharge Summary
Discharge Data
Date of Admission: 11/28/23
Date of Discharge: 12/01/23
-
Pending Results: No
Hospital Course
88 years old female presented to the emergency room with weakness and ambulatory dysfunction. Family reported progressive memory issues and confusion at home. Initial diagnosis was possible mild cognitive impairment with some delirium from urine
tract infection. Patient had scan of the head that showed diffuse cerebral and cerebellar volume loss with white matter leukoaraiosis in both cerebral hemispheres. Magnetic resonance imaging of the brain showed global advanced atrophy. Urine
culture came back positive with Escherichia coli. Patient did not have fever or leukocytosis. No dysuria. Patient received intravenous Rocephin in the hospital. Patient's confusion did not improve much. She was evaluated by neurologist.
Diagnosis possible cognitive impairment that was worsened by urinary tract infection and hospitalization. Patient did not have agitation or combativeness. Patient was diagnosed with a chronic heart failure with a preserved ejection fraction. She
was noticed to have increasing bilateral leg swelling with no signs of cellulitis. She was also noticed to have uncontrolled high blood pressure. History of noncompliance to her medications at home. She had acute kidney injury. Losartan was
stopped and she was started on nifedipine with better control of blood pressure. Her Lasix was made as 20 mg daily. Bilateral leg swelling improved and patient felt better. No history of chest pain. No hypoxia. Patient remained hemodynamically
stable. She did not have retention on bladder scan. She was advised to finish 7 days course of antibiotic for urine tract infection. Kidney function improved with creatinine 1.3 upon discharge. Patient was evaluated by physical therapy and was
recommended to seek shelter facility placement. Discharge instructions and recommendations were discussed with her daughter. Family and patient were advised to follow-up with neurologist and sander portable machine Dr. Jay Smith in near
future. They verbalized understanding. Patient was discharged in a stable condition.
Discharge Plan
-
Patient Disposition: Fdc/SNF
Discharge Diagnosis/Procedures: Urinary tract infection, uncomplicated, finish Ceftin course.
Mild cognitive impairment, seen by neurologist, for OP follow up. No Strokes.
Ambulatory dysfunction.
Acute kidney injury, creatinine 1.3 upon discharge.
Uncontrolled hypertension, losartan was stopped for now and started on low-dose nifedipine.
Chronic heart failure with a preserved ejection fraction, continue Lasix daily. Blood work in 3- 5 days
Condition: Good
Diet: 2 Gram Sodium
Blood Work: BMP in 3- 5 days
Referrals:
Best Liang MD [Active] - in one month
Jay Smith MD [Active] - in two to three weeks
Vianey Bailon NP [Family Provider] - in one to two weeks
Prescriptions:
New
acetaminophen [Tylenol Extra Strength] 500 mg Tablet
1,000 mg PO Q6HPRN PRN (Reason: mild to mod pain) Qty: 10 0RF
nifedipine 30 mg Tablet Extended Release
30 mg PO DAILY Qty: 30 0RF
furosemide 20 mg Tablet
20 mg PO DAILY Qty: 30 0RF
cyanocobalamin (vitamin B-12) 1,000 mcg Tablet
1,000 mcg PO DAILY Qty: 30 0RF
cefuroxime axetil 250 mg tablet
250 mg PO BID Qty: 8 0RF
Continued
atorvastatin 40 MG tablet
40 mg PO HS
aspirin 81 MG tablet,delayed release (DR/EC)
81 mg PO DAILY
levothyroxine 50 MCG tablet
50 mcg PO DAILY
cholecalciferol (vitamin D3) 1,000 UNITS tablet
1,000 units PO DAILY
melatonin 3 MG tablet
6 mg PO HS
methenamine hippurate 1 gram tablet
1 g PO BID
famotidine [Pepcid] 20 mg Tablet
20 mg PO HS
ascorbic acid (vitamin C) [Vitamin C] 500 mg Tablet
500 mg PO DAILY
Myrbetriq 50 mg tablet extended release 24 hr
50 mg PO DAILY
Discontinued
losartan 50 MG tablet
50 mg PO QPM
furosemide 20 MG tablet
20 mg PO SUTUWE
Patient Comments:
FAMILY CONCERN PATIENT DIDNT TAKE RIGHT MEDICATION, PER PCP PATIENT WAS TO STOP HCTZ 12.5MG AND START LASIX UNSURE IS TAKING BOTH OR THE HCTZ ( PER PCP HCTZ CAUSE HYPERCALCEMIA)
Discharge Orders:
Discharge Patient (As Directed); Ordered 12/01/23
Ordered By: Helena Dodson
Discharge Date and Time
Print Language: TURKMEN
--- NOTE | 2023-12-01 13:48 | PTCARENOTE ---
Report called to nursing staff at [facility]. Daughter at bedside and will transport patient.
--- NOTE | 2023-12-01 14:32 | PTCARENOTE ---
Peripheral IV removed. Patient and daughter aware of plan for her to go to [facility] today.
== END 2023-12-01 15:58 | DRG 77 ==
LOC: 4 EAST ACU 15:45
PROVIDERS: Nurse Practitioner; ADMITTING PHYSICIAN Hospitalist; ATTENDING PHYSICIAN Internal Medicine; CONSULT PHYSICIAN Student in an Organized Health Care Education/Training Program; EMERGENCY PHYSICIAN Emergency Medicine; FAMILY PHYSICIAN Internal Medicine
DX: I67.4 Hypertensive encephalopathy (principal); G92.8 Other toxic encephalopathy; N39.0 Urinary tract infection, site not specified; N17.9 Acute kidney failure, unspecified; I50.32 Chronic diastolic (congestive) heart failure; I13.0 Hypertensive heart and chronic kidney disease with heart failure and stage 1 through stage 4 chronic kidney disease, or unspecified chronic kidney disease; I16.0 Hypertensive urgency; E03.9 Hypothyroidism, unspecified; E11.22 Type 2 diabetes mellitus with diabetic chronic kidney disease; B96.20 Unspecified Escherichia coli [E. coli] as the cause of diseases classified elsewhere; K76.0 Fatty (change of) liver, not elsewhere classified; N18.32 Chronic kidney disease, stage 3b; R26.2 Difficulty in walking, not elsewhere classified; E78.00 Pure hypercholesterolemia, unspecified; K21.9 Gastro-esophageal reflux disease without esophagitis; Z66 Do not resuscitate; Z85.41 Personal history of malignant neoplasm of cervix uteri; Z91.148 Patient's other noncompliance with medication regimen for other reason; Z79.890 Hormone replacement therapy; Z11.52 Encounter for screening for COVID-19; Z91.040 Latex allergy status; Z91.199 Patient's noncompliance with other medical treatment and regimen due to unspecified reason; Z87.891 Personal history of nicotine dependence
CPT/HCPCS: 70450; 70551; 76775; 80048; 80053; 81003; 81015; 82607; 82962; 85025; 87070; 87077; 87086; 87186; 87811; 93005; 97116; 97162; 97166; 99285

== ENCOUNTER → 2023-12-04 12:33 | Outpatient (REF) | payer OTHER, MEDICARE, SELFPAY ==
[2023-12-04 13:57] LABS: Blood Urea Nitrogen 33 mg/dl (7-17); Calcium 8.5 mg/dl (8.4-10.2); Carbon Dioxide 24 mmol/L (22-30); Chloride 106 mmol/L (98-107); Glucose 109 mg/dl (70-99); Potassium 4.1 mmol/L (3.5-5.1); Sodium 134 mmol/L (135-145); eGFR 43.81
== END ==
LOC: OLABP 12:33
PROVIDERS: ATTENDING PHYSICIAN Family Medicine
DX: G92.8 Other toxic encephalopathy (principal); M62.81 Muscle weakness (generalized); R26.2 Difficulty in walking, not elsewhere classified; N39.0 Urinary tract infection, site not specified; B96.20 Unspecified Escherichia coli [E. coli] as the cause of diseases classified elsewhere; N18.32 Chronic kidney disease, stage 3b; I13.0 Hypertensive heart and chronic kidney disease with heart failure and stage 1 through stage 4 chronic kidney disease, or unspecified chronic kidney disease; Z85.41 Personal history of malignant neoplasm of cervix uteri; I50.30 Unspecified diastolic (congestive) heart failure; K21.9 Gastro-esophageal reflux disease without esophagitis; E78.5 Hyperlipidemia, unspecified; E11.9 Type 2 diabetes mellitus without complications; E03.9 Hypothyroidism, unspecified
CPT/HCPCS: 36415; 80048

== ENCOUNTER → 2023-12-05 11:35 | Outpatient (REF) | payer OTHER, MEDICARE, SELFPAY ==
[2023-12-05 12:00] LABS: % Basophils 0.8 % (0-2); % Eosinophils 4.5 % (0-6); % Immature Granulocytes 0.3 % (0-0.5); % Lymphocytes 15.5 % (20.5-51.1); % Monocytes 5.6 % (1.7-9.3); % Neutrophils 73.3 % (42.2-75.2); Absolute Basophils 0.1 10^3/uL (0-0.2); Absolute Eosinophils 0.4 10^3/uL (0-0.7); Absolute Lymphocytes 1.4 10^3/uL (1.2-3.4); Absolute Monocytes 0.5 10^3/uL (0.1-0.6); Absolute Neutrophils 6.8 10^3/uL (1.4-6.5); Hematocrit 39.1 % (37.0-47.0); Hemoglobin 12.5 g/dL (12.0-16.0); Mean Corpuscular Hgb 29.6 pg (27.0-31.0); Mean Corpuscular Volume 92.4 fL (81.0-99.0); Mean Platelet Volume 11.3 fL (7.4-10.4); Nucleated Red Blood Cells % 0 %; Platelet Count 150 10^3/uL (130-400); Red Blood Cell Count 4.23 10^6/uL (4.20-5.40); Red Cell Dist. Width 15.1 % (11.5-14.5); White Blood Cell Count 9.3 10^3/uL (4.8-10.8)
[2023-12-05 12:39] LABS: ALT (SGPT) < 10 U/L (0-35); AST (SGOT) 16 U/L (14-36); Albumin 3.5 g/dl (3.5-5.0); Alkaline Phosphatase 109 U/L (38-126); Blood Urea Nitrogen 30 mg/dl (7-17); Calcium 8.6 mg/dl (8.4-10.2); Carbon Dioxide 26 mmol/L (22-30); Chloride 104 mmol/L (98-107); Glucose 122 mg/dl (70-99); Potassium 4.2 mmol/L (3.5-5.1); Sodium 136 mmol/L (135-145); Total Bilirubin 0.5 mg/dl (0.2-1.3); Total Protein 6.6 g/dl (6.3-8.2); eGFR 48.63
== END ==
LOC: OLABP 11:35
PROVIDERS: ATTENDING PHYSICIAN Family Medicine
DX: G92.8 Other toxic encephalopathy (principal); M62.81 Muscle weakness (generalized); R26.2 Difficulty in walking, not elsewhere classified; N39.0 Urinary tract infection, site not specified; B96.20 Unspecified Escherichia coli [E. coli] as the cause of diseases classified elsewhere; I13.0 Hypertensive heart and chronic kidney disease with heart failure and stage 1 through stage 4 chronic kidney disease, or unspecified chronic kidney disease; I50.30 Unspecified diastolic (congestive) heart failure; K21.9 Gastro-esophageal reflux disease without esophagitis; E78.5 Hyperlipidemia, unspecified; E11.9 Type 2 diabetes mellitus without complications; E03.9 Hypothyroidism, unspecified; N18.32 Chronic kidney disease, stage 3b; Z85.41 Personal history of malignant neoplasm of cervix uteri
CPT/HCPCS: 36415; 80053; 85025

== ENCOUNTER → 2023-12-18 17:13 | Outpatient (REF) | payer MEDICARE, OTHER, SELFPAY | LOC: RAD 17:13 | PROVIDERS: ATTENDING PHYSICIAN Internal Medicine | DX: N39.0 Urinary tract infection, site not specified (principal); R05.1 Acute cough; R09.89 Other specified symptoms and signs involving the circulatory and respiratory systems | CPT/HCPCS: 71046 ==

== ENCOUNTER → 2024-01-31 09:52 | Outpatient (REF) | payer MEDICARE, SELFPAY ==
[2024-01-31 10:46] LABS: % Basophils 0.6 % (0-2); % Eosinophils 3.9 % (0-6); % Immature Granulocytes 0.5 % (0-0.5); % Lymphocytes 12.4 % (20.5-51.1); % Monocytes 5.9 % (1.7-9.3); % Neutrophils 76.7 % (42.2-75.2); Absolute Basophils 0.1 10^3/uL (0-0.2); Absolute Eosinophils 0.3 10^3/uL (0-0.7); Absolute Lymphocytes 1.1 10^3/uL (1.2-3.4); Absolute Monocytes 0.5 10^3/uL (0.1-0.6); Absolute Neutrophils 6.5 10^3/uL (1.4-6.5); Hematocrit 35.7 % (37.0-47.0); Hemoglobin 11.7 g/dL (12.0-16.0); Mean Corp Hgb Conc. 32.8 g/dL (33.0-37.0); Mean Corpuscular Hgb 29.3 pg (27.0-31.0); Mean Corpuscular Volume 89.3 fL (81.0-99.0); Mean Platelet Volume 9.8 fL (7.4-10.4); Nucleated Red Blood Cells % 0 %; Platelet Count 184 10^3/uL (130-400); Red Cell Dist. Width 14.5 % (11.5-14.5); White Blood Cell Count 8.4 10^3/uL (4.8-10.8)
[2024-01-31 11:09] LABS: ALT (SGPT) 11 U/L (0-35); AST (SGOT) 16 U/L (14-36); Albumin 3.8 g/dl (3.5-5.0); Alkaline Phosphatase 177 U/L (38-126); Blood Urea Nitrogen 19 mg/dl (7-17); Calcium 9.3 mg/dl (8.4-10.2); Carbon Dioxide 30 mmol/L (22-30); Chloride 102 mmol/L (98-107); Glucose 137 mg/dl (70-99); Potassium 3.8 mmol/L (3.5-5.1); Sodium 141 mmol/L (135-145); Total Bilirubin 0.8 mg/dl (0.2-1.3); Total Protein 6.9 g/dl (6.3-8.2); eGFR 43.81
[2024-01-31 12:24] LABS: Folate 5.7 ng/ml (2.76-20); Vitamin B12 506 pg/ml (239-931)
== END ==
LOC: REG 09:52
PROVIDERS: ATTENDING PHYSICIAN Internal Medicine
DX: I10 Essential (primary) hypertension (principal); F41.9 Anxiety disorder, unspecified; E53.8 Deficiency of other specified B group vitamins; N39.0 Urinary tract infection, site not specified; N17.9 Acute kidney failure, unspecified; N18.32 Chronic kidney disease, stage 3b
CPT/HCPCS: 36415; 80053; 82607; 82746; 85025

== ENCOUNTER 2024-02-06 17:44 | Outpatient (RCR) | payer MEDICARE, SELFPAY | END 2024-02-06 23:59 | disposition home or self-care (01) | LOC: RPT 17:44 | PROVIDERS: ATTENDING PHYSICIAN Internal Medicine | DX: R60.0 Localized edema (principal); I89.0 Lymphedema, not elsewhere classified; M62.81 Muscle weakness (generalized); R26.2 Difficulty in walking, not elsewhere classified | CPT/HCPCS: 97140; 97163; 97530 ==

== ENCOUNTER → 2024-02-28 17:03 | Outpatient (REF) | payer MEDICARE, SELFPAY | LOC: RCS 17:03 | PROVIDERS: ATTENDING PHYSICIAN Internal Medicine Cardiovascular Disease; FAMILY PHYSICIAN Internal Medicine | DX: I35.0 Nonrheumatic aortic (valve) stenosis (principal) | CPT/HCPCS: 93306 ==

== ENCOUNTER 2024-03-12 18:24 | Outpatient (RCR) | payer MEDICARE, SELFPAY | END 2024-03-12 23:59 | disposition home or self-care (01) | LOC: RPT 18:24 | PROVIDERS: ATTENDING PHYSICIAN Internal Medicine | DX: R60.0 Localized edema; I89.0 Lymphedema, not elsewhere classified; M62.81 Muscle weakness (generalized); R26.2 Difficulty in walking, not elsewhere classified | CPT/HCPCS: 97016; 97110; 97140; 97530 ==

== ENCOUNTER 2024-04-07 15:55 | Emergency (ER) | payer MEDICARE, SELFPAY ==
[2024-04-07 15:59] VITALS: BP 169/81
--- NOTE | 2024-04-07 17:37 | ED.SKININJ ---
HPI-Injury
General
Chief Complaint: Skin Surface Trauma
Source: patient
Exam Limitations: none
Time Seen by Provider: 04/07/24 17:04
Nursing documentation reviewed up to this point in time: agreed with
History of Present Illness-Injury
Is this injury a work related problem?: No
Is pt an associate of [facility]?: No
Initial Injury comments:
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 States she fell out of chair and sustained a skin tear to her left upper arm. Denies hitting her head. Brought to ED via EMS for eval.
Past History
Past History
ED Past Medical History: Cancer (Cervical cancer), GERD, HTN, Hypercholesterolemia, NIDDM, Hypothyroidism and Other (Edema, history of pericarditis, pneumonia, polyps, stage III kidney disease, Cellulitis, UTI, Vertigo, PNA,)
ED Past Surgical History: Appendectomy, Gynecological (Radical hysterectomy, lumpectomy), Orthopedic (Back surgery) and Other (Cataract surgery, Lumpectomy, )
Social History
Tobacco: Former smoker
Alcohol: None
Drug: None
Personal:
Living: alone
Employment: Retired
Family History
Family History: Other
Review of Systems
Review of Systems
Allergies reviewed?: Yes
All Other Systems: ROS reviewed and negative except as documented in HPI and ROS
Constitutional: Reports no symptoms
EENT: Reports no symptoms
Respiratory: Reports no symptoms
Cardiac: Reports no symptoms
ABD/GI: Reports no symptoms
Musculoskeletal: Reports no symptoms
Skin: Reports other (skin tear to left upper arm)
Neurological: Reports no symptoms
Psychiatric: Reports no symptoms
Skin Exam
Laceration
Left upper arm #1:
Length in cm: 2
Orientation: vertical
Type of Laceration: simple
Any active bleeding?: no active bleeding
Distal skin color and temperature: normal-warm & good color
Normal distal neurovascular exam: Yes
Range of motion: full
Left upper arm #2:
Length in cm: 3
Orientation: horizontal
Type of Laceration: simple
Any active bleeding?: no active bleeding
Distal skin color and temperature: normal-warm & good color
Normal distal neurovascular exam: Yes
Range of motion: full
Phy Exam
General Physical Exam
General Presentation: well appearing and no apparent distress
General age: appears stated age
General Skin: warm and dry
General Habitus: normal
General Mental: alert
Neurological Exam
Neurological Exam: alert, oriented x3, CN II-XII intact, no motor deficits, no sensory deficits and speech normal
Musculoskeletal Exam
Musculoskeletal Exam: full ROM and neuro vasc intact
Skin Exam
Skin Exam: normal color, warm/dry and no rash
Psychiatric Exam
Psychiatric Exam: normal mood/affect
Course
Vital Signs
Initial and Last Documented VS:
Initial Vital Signs
Temp Pulse Resp BP Pulse Ox
97.4 F 73 17 169/81 99
04/07/24 15:59 04/07/24 15:59 04/07/24 15:59 04/07/24 15:59 04/07/24 15:59
Last Documented Vital Signs
Temp Pulse Resp BP Pulse Ox
97.4 F 73 17 169/81 99
04/07/24 15:59 04/07/24 15:59 04/07/24 15:59 04/07/24 15:59 04/07/24 15:59
Procedures
Laceration Closure
Left upper arm #1:
Status of Wound: clean
Description of Wound Edges: sharp
Preparation: cleaned with saline
Revision/Debridement: routine- no revision
Wound exploration: explored to base- no FB
Type of Closure: Dermabond-skin glue
Left upper arm #2:
Status of Wound: clean
Preparation: cleaned with saline
Revision/Debridement: routine- no revision
Wound exploration: explored to base- no FB
Type of Closure: Dermabond-skin glue
*Critical Care Note
Total Time (30-74mins, 75-104mins- exclusive of procedures): Not Applicable
ED Attending Note
-
Portions of this chart may have been created with voice recognition software.� Occasional wrong word or��sound alike� substitutions may have occurred due to the inherent limitations of voice recognition software.
Discharge Plan
Departure
Patient Disposition: Home (Routine Discharge)
Date of Disposition: 04/07/24
Time of Disposition: 17:35
Patient with high blood pressure during this ER visit?: No
Condition: Good
Covid-19: Not Applicable
Discharge Problem:
Skin tear of left upper arm without complication
Instructions: Laceration Repair With Glue (DC)
Prescriptions:
No Action
atorvastatin 40 MG tablet
40 mg PO HS
aspirin 81 MG tablet,delayed release (DR/EC)
81 mg PO DAILY
levothyroxine 50 MCG tablet
50 mcg PO DAILY
cholecalciferol (vitamin D3) 1,000 UNITS tablet
1,000 units PO DAILY
melatonin 3 MG tablet
6 mg PO HS
methenamine hippurate 1 gram tablet
1 g PO BID
famotidine [Pepcid] 20 mg Tablet
20 mg PO HS
ascorbic acid (vitamin C) [Vitamin C] 500 mg Tablet
500 mg PO DAILY
Myrbetriq 50 mg tablet extended release 24 hr
50 mg PO DAILY
nifedipine 30 mg Tablet Extended Release
30 mg PO DAILY Qty: 30 0RF
acetaminophen [Tylenol Extra Strength] 500 mg Tablet
1,000 mg PO Q6HPRN PRN (Reason: mild to mod pain) Qty: 10 0RF
furosemide 20 mg Tablet
20 mg PO DAILY Qty: 30 0RF
cyanocobalamin (vitamin B-12) 1,000 mcg Tablet
1,000 mcg PO DAILY Qty: 30 0RF
cefuroxime axetil 250 mg tablet
250 mg PO BID Qty: 8 0RF
Referrals:
Vianey Bailon NP [Family Provider] -
Activity Restrictions/Additional Instructions:
Keep wound dry for 24 hours. Do not remove tape strips.
Interventions
Interventions:
*Risk Screen - Suicide Last Done: 04/07/24 16:59
*General Assessment Last Done: 04/07/24 16:59
*Neglect/Abuse Screening Last Done: 04/07/24 16:59
*ED COVID-19 Vaccine History Last Done: 04/07/24 17:01
ED-Skin Assessment Last Done: 04/07/24 16:59
Discharge Date and Time
Print Language: SETSWANA
== END 2024-04-07 18:55 | disposition home or self-care (01) ==
LOC: EMR 15:55
PROVIDERS: EMERGENCY PHYSICIAN Emergency Medicine; FAMILY PHYSICIAN Internal Medicine
DX: S41.112A Laceration without foreign body of left upper arm, initial encounter (principal); W07.XXXA Fall from chair, initial encounter; Z87.891 Personal history of nicotine dependence
CPT/HCPCS: 99282; 12002

== ENCOUNTER 2024-04-09 13:50 | Emergency (ER) | payer MEDICARE, SELFPAY ==
[2024-04-09 14:04] VITALS: BP 116/70
--- NOTE | 2024-04-09 14:47 | ED.SKININJ ---
HPI-Injury
General
Chief Complaint: Wound Check/Suture Removal
Source: patient
Exam Limitations: none
Time Seen by Provider: 04/09/24 14:41
History of Present Illness-Injury
Initial Injury comments:
88-year-old female presents for evaluation of left upper arm wound. She was here 2 days ago for a skin tear to the left upper arm which was cleansed and held in approximation with skin adhesive and Steri-Strips. She came back today she noticed
some bleeding from the dressing. No further injury. No other complaint
Past History
Past History
ED Past Medical History: Cancer (Cervical cancer), GERD, HTN, Hypercholesterolemia, NIDDM, Hypothyroidism and Other (Edema, history of pericarditis, pneumonia, polyps, stage III kidney disease, Cellulitis, UTI, Vertigo, PNA,)
ED Past Surgical History: Appendectomy, Gynecological (Radical hysterectomy, lumpectomy), Orthopedic (Back surgery) and Other (Cataract surgery, Lumpectomy, )
Social History
Tobacco: Former smoker
Alcohol: None
Drug: None
Personal:
Living: alone
Employment: Retired
Family History
Family History: Other
Phy Exam
Physical Exam
Physical Exam:
General: Well-appearing female no acute respiratory distress
Skin: Dry dressing including Steri-Strips noted to the left upper extremity with underlying ecchymosis. No active bleeding nontender
Musculoskeletal exam; good range of motion left upper extremity
Course
Vital Signs
Initial and Last Documented VS:
Initial Vital Signs
Temp Pulse Resp BP Pulse Ox
97.6 F 73 18 116/70 97
04/09/24 14:04 04/09/24 14:04 04/09/24 14:04 04/09/24 14:04 04/09/24 14:04
Last Documented Vital Signs
Temp Pulse Resp BP Pulse Ox
97.6 F 73 18 116/70 97
04/09/24 14:04 04/09/24 14:04 04/09/24 14:04 04/09/24 14:04 04/09/24 14:04
MDM/Problems Addressed
Differential Diagnosis Includes:
Patient here for wound check for bleeding from the wound however there is no active bleeding. Reassured patient. New gauze wrap was applied stable for discharge
*Critical Care Note
Total Time (30-74mins, 75-104mins- exclusive of procedures): Not Applicable
ED Attending Note
-
Portions of this chart may have been created with voice recognition software.� Occasional wrong word or��sound alike� substitutions may have occurred due to the inherent limitations of voice recognition software.
Discharge Plan
Departure
Patient Disposition: Home (Routine Discharge)
Date of Disposition: 04/09/24
Time of Disposition: 14:49
Patient with high blood pressure during this ER visit?: No
Discharge Problem:
Visit for wound care
Instructions: Wound Care (DC)
Prescriptions:
No Action
atorvastatin 40 MG tablet
40 mg PO HS
aspirin 81 MG tablet,delayed release (DR/EC)
81 mg PO DAILY
levothyroxine 50 MCG tablet
50 mcg PO DAILY
cholecalciferol (vitamin D3) 1,000 UNITS tablet
1,000 units PO DAILY
melatonin 3 MG tablet
6 mg PO HS
methenamine hippurate 1 gram tablet
1 g PO BID
famotidine [Pepcid] 20 mg Tablet
20 mg PO HS
ascorbic acid (vitamin C) [Vitamin C] 500 mg Tablet
500 mg PO DAILY
Myrbetriq 50 mg tablet extended release 24 hr
50 mg PO DAILY
nifedipine 30 mg Tablet Extended Release
30 mg PO DAILY Qty: 30 0RF
acetaminophen [Tylenol Extra Strength] 500 mg Tablet
1,000 mg PO Q6HPRN PRN (Reason: mild to mod pain) Qty: 10 0RF
furosemide 20 mg Tablet
20 mg PO DAILY Qty: 30 0RF
cyanocobalamin (vitamin B-12) 1,000 mcg Tablet
1,000 mcg PO DAILY Qty: 30 0RF
cefuroxime axetil 250 mg tablet
250 mg PO BID Qty: 8 0RF
Activity Restrictions/Additional Instructions:
Change dressing as needed. Turn if worse. The Steri-Strips should fall off on their own
Interventions
Interventions:
ED-Skin Assessment Last Done: 04/09/24 14:27
Discharge Date and Time
Print Language: YORUBA
[2024-04-09 15:17] VITALS: BP 173/64
== END 2024-04-09 15:59 | disposition home or self-care (01) ==
LOC: EMR 13:50
PROVIDERS: EMERGENCY PHYSICIAN Emergency Medicine; FAMILY PHYSICIAN Internal Medicine
DX: Z48.00 Encounter for change or removal of nonsurgical wound dressing (principal); K21.9 Gastro-esophageal reflux disease without esophagitis; E78.00 Pure hypercholesterolemia, unspecified; E03.9 Hypothyroidism, unspecified; I12.9 Hypertensive chronic kidney disease with stage 1 through stage 4 chronic kidney disease, or unspecified chronic kidney disease; N18.30 Chronic kidney disease, stage 3 unspecified; Z85.41 Personal history of malignant neoplasm of cervix uteri; Z87.440 Personal history of urinary (tract) infections; Z87.891 Personal history of nicotine dependence; Z90.49 Acquired absence of other specified parts of digestive tract; Z90.710 Acquired absence of both cervix and uterus
CPT/HCPCS: 99282

== ENCOUNTER → 2024-05-14 08:17 | Outpatient (REF) | payer MEDICARE, SELFPAY ==
[2024-05-14 10:28] LABS: % Basophils 0.7 % (0-2); % Eosinophils 8.8 % (0-6); % Immature Granulocytes 0.3 % (0-0.5); % Lymphocytes 20.8 % (20.5-51.1); % Monocytes 7.1 % (1.7-9.3); % Neutrophils 62.3 % (42.2-75.2); Absolute Eosinophils 0.5 10^3/uL (0-0.7); Absolute Lymphocytes 1.2 10^3/uL (1.2-3.4); Absolute Monocytes 0.4 10^3/uL (0.1-0.6); Absolute Neutrophils 3.6 10^3/uL (1.4-6.5); Hematocrit 36.2 % (37.0-47.0); Hemoglobin 11.6 g/dL (12.0-16.0); Mean Corpuscular Hgb 27.8 pg (27.0-31.0); Mean Corpuscular Volume 86.6 fL (81.0-99.0); Nucleated Red Blood Cells % 0 %; Platelet Count 106 10^3/uL (130-400); Red Blood Cell Count 4.18 10^6/uL (4.20-5.40); Red Cell Dist. Width 14.6 % (11.5-14.5); White Blood Cell Count 5.8 10^3/uL (4.8-10.8)
[2024-05-14 11:06] LABS: ALT (SGPT) 11 U/L (0-35); AST (SGOT) 16 U/L (14-36); Alkaline Phosphatase 153 U/L (38-126); Blood Urea Nitrogen 25 mg/dl (7-17); Calcium 8.9 mg/dl (8.4-10.2); Carbon Dioxide 26 mmol/L (22-30); Chloride 103 mmol/L (98-107); GGTP 19 U/L (12-43); Glucose 129 mg/dl (70-99); Potassium 3.8 mmol/L (3.5-5.1); Sodium 142 mmol/L (135-145); Total Bilirubin 0.6 mg/dl (0.2-1.3); Total Protein 6.8 g/dl (6.3-8.2); eGFR 48.33
== END ==
LOC: REG 08:17
PROVIDERS: ATTENDING PHYSICIAN Internal Medicine
DX: N39.0 Urinary tract infection, site not specified (principal); G31.84 Mild cognitive impairment of uncertain or unknown etiology; R26.2 Difficulty in walking, not elsewhere classified; N17.9 Acute kidney failure, unspecified; I10 Essential (primary) hypertension; I89.0 Lymphedema, not elsewhere classified; R74.8 Abnormal levels of other serum enzymes
CPT/HCPCS: 36415; 80053; 82977; 85025

== ENCOUNTER 2024-07-06 12:53 | Emergency (ER) | payer MEDICARE, SELFPAY ==
[2024-07-06 12:56] VITALS: BP 161/61
--- NOTE | 2024-07-06 12:59 | ED.GENMED ---
History of Present Illness
<Katarzyna Narvaez PA-C - Last Filed: 07/06/24 15:30>
General
Chief Complaint: Swelling
Source: patient
Exam Limitations: none
Time Seen by Provider: 07/06/24 12:59
Nursing documentation reviewed up to this point in time: agreed with
History of Present Illness
History of Present Illness:
89 y/o female with pmh of HTN, HLP, stage III CKD, hypothyroidism, type II DM, presents to the emergency department today with concerns of redness of her lower extremities that started a few days ago. Patient notes that she has chronic bilateral
lower extremity swelling due to lymphedema and states that she has had this for around 8 years and states that she will get intermittent cellulitis and is concerned that she has that today. She also reports some mild pain in her lower extremities.
She does have diabetic neuropathy. She denies fevers or chills, lower extremity wounds, chest pain, shortness of breath, nausea, vomiting. Patient reports that she has managed the swelling on and off with compression leggings and physical therapy.
Past History
<Katarzyna Narvaez PA-C - Last Filed: 07/06/24 15:30>
Past History
ED Past Medical History: Cancer (Cervical cancer), GERD, HTN, Hypercholesterolemia, NIDDM, Hypothyroidism and Other (Edema, history of pericarditis, pneumonia, polyps, stage III kidney disease, Cellulitis, UTI, Vertigo, PNA,)
ED Past Surgical History: Appendectomy, Gynecological (Radical hysterectomy, lumpectomy), Orthopedic (Back surgery) and Other (Cataract surgery, Lumpectomy, )
Social History
Tobacco: Former smoker
Alcohol: None
Drug: None
Personal:
Living: alone
Employment: Retired
Family History
Family History: Other
Review of Systems
<Katarzyna Narvaez PA-C - Last Filed: 07/06/24 15:30>
Review of Systems
All Other Systems: ROS reviewed and negative except as documented in HPI and ROS
Phy Exam
<Katarzyna Narvaez PA-C - Last Filed: 07/06/24 15:30>
Physical Exam
Physical Exam:
General: Patient is well appearing and in no acute distress; non-toxic
Skin: Warm and dry, bilateral lower extremity swelling noted with overlying circumferential erythema
Head: Normocephalic, atraumatic
Eyes: Sclera non-icteric. EOMs intact. PERRLA.
Cardiac: Regular rate and rhythm, no murmurs
Peripheral Vascular: 2+ dorsalis pedis pulses bilaterally
Pulm: Normal respiratory effort, no wheezes, rales, rhonchi
Musculoskeletal: Mild tenderness to palpation of b/l lower extremities, full active ROM
Neuro: CN II-XII intact, no focal neurologic deficits.
Psychiatric: Appropriate mood and affect.
Scores
<Katarzyna Narvaez PA-C - Last Filed: 07/06/24 15:30>
Heart Failure Risk
Heart Failure Risk Score: Not Applicable
Course
<Katarzyna Narvaez PA-C - Last Filed: 07/06/24 15:30>
Orders/Labs/Results
Orders:
Orders
07/06/24 13:28
Electrocardiogram (*1) Urgent
Reason for Study: Chest Pain
EKG- Treatment ONCE
Complete Blood Count/With Diff Urgent
Comprehensive Metabolic Panel Urgent
07/06/24 13:29
Troponin I Urgent
07/06/24 14:41
Cephalexin Monohydrate [Keflex] 500 mg PO NOW STA
Abnormal Lab Results
07/06/24
13:28
RBC 4.15 L 10^6/uL
(4.20-5.40)
Hgb 11.7 L g/dL
(12.0-16.0)
MCHC 31.0 L g/dL
(33.0-37.0)
RDW 15.3 H %
(11.5-14.5)
Plt Count 119 L 10^3/uL
(130-400)
Absolute Lymphs (auto) 0.8 L 10^3/uL
(1.2-3.4)
Neutrophils % 79.2 H %
(42.2-75.2)
Lymphocytes % 10.5 L %
(20.5-51.1)
BUN 26 H mg/dl
(7-17)
Creatinine 1.1 H mg/dL
(0.6-1.0)
Glucose 165 H mg/dl
(70-99)
Alkaline Phosphatase 135 H U/L
(38-126)
07/06/24 13:28
07/06/24 13:28
Vital Signs
Initial and Last Documented VS:
Initial Vital Signs
Temp Pulse Resp BP Pulse Ox
98.3 F 83 16 161/61 98
07/06/24 12:56 07/06/24 12:56 07/06/24 12:56 07/06/24 12:56 07/06/24 12:56
Last Documented Vital Signs
Temp Pulse Resp BP Pulse Ox
98.3 F 72 12 94/76 98
07/06/24 12:56 07/06/24 14:01 07/06/24 14:01 07/06/24 14:01 07/06/24 14:01
<Ashly Dela Cruz DO - Last Filed: 07/06/24 14:19>
Orders/Labs/Results
Orders:
Orders
07/06/24 13:28
Electrocardiogram (*1) Urgent
Reason for Study: Chest Pain
EKG- Treatment ONCE
Complete Blood Count/With Diff Urgent
Comprehensive Metabolic Panel Urgent
07/06/24 13:29
Troponin I Urgent
07/06/24 14:41
Cephalexin Monohydrate [Keflex] 500 mg PO NOW STA
Abnormal Lab Results
07/06/24
13:28
RBC 4.15 L 10^6/uL
(4.20-5.40)
Hgb 11.7 L g/dL
(12.0-16.0)
MCHC 31.0 L g/dL
(33.0-37.0)
RDW 15.3 H %
(11.5-14.5)
Plt Count 119 L 10^3/uL
(130-400)
Absolute Lymphs (auto) 0.8 L 10^3/uL
(1.2-3.4)
Neutrophils % 79.2 H %
(42.2-75.2)
Lymphocytes % 10.5 L %
(20.5-51.1)
BUN 26 H mg/dl
(7-17)
Creatinine 1.1 H mg/dL
(0.6-1.0)
Glucose 165 H mg/dl
(70-99)
Alkaline Phosphatase 135 H U/L
(38-126)
07/06/24 13:28
07/06/24 13:28
Vital Signs
Initial and Last Documented VS:
Initial Vital Signs
Temp Pulse Resp BP Pulse Ox
98.3 F 83 16 161/61 98
07/06/24 12:56 07/06/24 12:56 07/06/24 12:56 07/06/24 12:56 07/06/24 12:56
Last Documented Vital Signs
Temp Pulse Resp BP Pulse Ox
98.3 F 72 12 94/76 98
07/06/24 12:56 07/06/24 14:01 07/06/24 14:01 07/06/24 14:01 07/06/24 14:01
<Katarzyna Narvaez PA-C - Last Filed: 07/06/24 15:30>
MDM/Problems Addressed
Differential Diagnosis Includes:
ddx lymphedema, cellulitis, dvt, nephrotic syndrome, CHF
MDM/Problems Addressed:
89-year-old female past medical history of lymphedema presents emergency department today with concerns of bilateral lower extremity erythema. The swelling has been going on for the past 8 years or so with erythema started a few days ago. Patient
on exam is afebrile but she does have bilateral circumferential lower extremity and erythema. Will send off labs. She is afebrile.
Patient also concerned of left upper extremity pain in the back of her shoulder pain and down her arm for the past 3 days. Patient believes that there is a result of her the pressure if she places on it from her walker but is concerned there may be
something wrong with her heart. Will send off troponin and EKG and reassess.
On reassessment, patient appears well, patient has not developed any chest pain. Did note that patient has been on Keflex in the past for cellulitis. Her CBC is unremarkable, her CMP shows baseline renal function. Her troponin is undetectable and
her EKG shows no specific ischemic changes. Patient stable for discharge, will start on Keflex, return precautions discussed.
Chronic conditions affecting care:
Type 2 diabetes, chronic kidney disease, lymphedema, hypothyroidism
<Katarzyna Narvaez PA-C - Last Filed: 07/06/24 15:30>
*Pulse Oximetry
Patient hypoxic: no
*EKG
Interpreted by ED Provider?: Yes
EKG Intrepretation Date: 07/06/24
Interpretation: abnormal
Heart Rate: 68
Rate: normal
Rhythm: sinus
[place]: normal axis
QRS Pattern: normal QRS
Ischemia: other (non-specific T wave abnormality )
*Critical Care Note
Total Time (30-74mins, 75-104mins- exclusive of procedures): Not Applicable
Data Reviewed
Review of Other/Old Records Reveals: Records (Reviewed physical therapy evaluation from 01/18/2024, patient seen for lymphedema, patient recommending use compression stockings; reviewed previous ER physician documentation where patient was seen for
cellulitis, patient sent home on Keflex.) and Discharge Summary (Reviewed discharge summary from 12/01/2023, patient in for weakness and ambulatory dysfunction as well as transient confusion, patient eventually discharged with PT and cards follow-up)
Source: patient and records
Further Testing Considered But Not Given:
Consider chest x-ray however patient's lungs are clear, patient has no history of CHF
<Katarzyna Narvaez PA-C - Last Filed: 07/06/24 15:30>
Patient Management
Escalation/DeEscalation of care consider admission/obs:
Reviewed case with my attending
ED Attending Note
<Katarzyna Narvaez PA-C - Last Filed: 07/06/24 15:30>
-
Portions of this chart may have been created with voice recognition software.� Occasional wrong word or��sound alike� substitutions may have occurred due to the inherent limitations of voice recognition software.
<Ashly Dela Cruz DO - Last Filed: 07/06/24 14:19>
ED Attending Note
Patient seen and examined by attending physician: Yes
I performed the substantive portion of visit, reviewed & personally made and approve the management plan that is documented in note by myself or ISAIAS.: Yes
I performed a history and physical exam of patient and discussed management with resident, I reviewed resident's note and agree with documented findings and plan of care.: Yes
ED Attending Note:
Patient seen and evaluated at bedside. 89-year-old female with history of chronic lymphedema, diabetes, CKD, history of cellulitis presenting for increased lower extremity swelling, pain, redness. Notes symptoms for the past several days. Reports
that she has had this in the past, requiring antibiotics. She has been ambulating without occultly. Denies fever, chest pain, difficulty breathing. Does note that she was having some left shoulder pain. Denies numbness or tingling to her
extremities. Vital signs are significant for mild hypertension.
On exam patient is resting comfortably, no acute distress or discomfort. Unremarkable cardiac and pulmonary exam. On examination of the lower extremities, 2+ pitting edema with erythema from the mid gamble to the ankle bilaterally. Generalized
tenderness on palpation. Swelling appears to be symmetric bilaterally. Sensation and pulses intact. Symptoms appear consistent with inflammation and possible developing cellulitis. No present neurovascular compromise. Low suspicion for DVT
given bilateral nature, swelling, known history of lymphedema and swelling. Patient screening EKG given reported left shoulder pain, nonischemic. Patient without chest pain or difficulty breathing, without concern for pulmonary edema or ACS. Will
screen with laboratory analysis with plan for oral antibiotics and outpatient follow-up. However, will require return to the emergency department if swelling is worsening or redness is worsening.
Discharge Plan
Departure
Patient Disposition: Home (Routine Discharge)
Date of Disposition: 07/06/24
Time of Disposition: 14:40
Patient with high blood pressure during this ER visit?: Yes
Condition: Good
Discharge Problem:
Cellulitis
Instructions: Lymphedema, Cellulitis (Skin Infection), Adult ED, BLOOD PRESSURE
Prescriptions:
New
cephalexin 500 mg capsule
500 mg PO QID 7 Days Qty: 28 0RF
No Action
atorvastatin 40 MG tablet
40 mg PO HS
aspirin 81 MG tablet,delayed release (DR/EC)
81 mg PO DAILY
levothyroxine 50 MCG tablet
50 mcg PO DAILY
cholecalciferol (vitamin D3) 1,000 UNITS tablet
1,000 units PO DAILY
melatonin 3 MG tablet
6 mg PO HS
methenamine hippurate 1 gram tablet
1 g PO BID
famotidine [Pepcid] 20 mg Tablet
20 mg PO HS
ascorbic acid (vitamin C) [Vitamin C] 500 mg Tablet
500 mg PO DAILY
Myrbetriq 50 mg tablet extended release 24 hr
50 mg PO DAILY
nifedipine 30 mg Tablet Extended Release
30 mg PO DAILY Qty: 30 0RF
acetaminophen [Tylenol Extra Strength] 500 mg Tablet
1,000 mg PO Q6HPRN PRN (Reason: mild to mod pain) Qty: 10 0RF
furosemide 20 mg Tablet
20 mg PO DAILY Qty: 30 0RF
cyanocobalamin (vitamin B-12) 1,000 mcg Tablet
1,000 mcg PO DAILY Qty: 30 0RF
cefuroxime axetil 250 mg tablet
250 mg PO BID Qty: 8 0RF
Referrals:
Vianey Bailon NP [Family Provider] -
Activity Restrictions/Additional Instructions:
Keflex has been sent to your pharmacy. Please take 1 tablet 4 times daily for 7 days.
Please return to emergency department should you experience increasing pain in your lower extremities, inability ambulate, fevers or chills, nausea or vomiting, chest pain, shortness of breath, syncopal episodes, or any other signs or symptoms
concerning to you.
Please follow-up with your urologist regarding your urinary incontinence.
Please follow-up with your primary care provider in 1 week to reassess your cellulitis.
Interventions
Interventions:
*Risk Screen - Suicide Last Done: 07/06/24 12:56
*General Assessment Last Done: 07/06/24 13:24
*Neglect/Abuse Screening Last Done: 07/06/24 12:56
ED- Fall Risk Assessment Last Done: 07/06/24 13:24
*ED COVID-19 Vaccine History Last Done: 07/06/24 13:24
*Nursing Disposition Last Done: 07/06/24 14:57
ED- Cardiac Assessment Last Done: 07/06/24 13:24
ED- Pulmonary Assessment Last Done: 07/06/24 13:24
ED-Skin Assessment Last Done: 07/06/24 13:24
Discharge Date and Time
Discharge Date/Time: 07/06/24 15:15
Print Language: KAZAKH
[2024-07-06 13:23] VITALS: BMI 28.0
[2024-07-06 13:28] VITALS: BP 151/67
[2024-07-06 13:45] LABS: % Basophils 0.5 % (0-2); % Eosinophils 4.1 % (0-6); % Immature Granulocytes 0.4 % (0-0.5); % Lymphocytes 10.5 % (20.5-51.1); % Monocytes 5.3 % (1.7-9.3); % Neutrophils 79.2 % (42.2-75.2); Absolute Eosinophils 0.3 10^3/uL (0-0.7); Absolute Lymphocytes 0.8 10^3/uL (1.2-3.4); Absolute Monocytes 0.4 10^3/uL (0.1-0.6); Hematocrit 37.8 % (37.0-47.0); Hemoglobin 11.7 g/dL (12.0-16.0); Mean Corpuscular Hgb 28.2 pg (27.0-31.0); Mean Corpuscular Volume 91.1 fL (81.0-99.0); Mean Platelet Volume 10.2 fL (7.4-10.4); Nucleated Red Blood Cells % 0 %; Platelet Count 119 10^3/uL (130-400); Red Blood Cell Count 4.15 10^6/uL (4.20-5.40); Red Cell Dist. Width 15.3 % (11.5-14.5); White Blood Cell Count 7.6 10^3/uL (4.8-10.8)
[2024-07-06 14:01] VITALS: BP 94/76
[2024-07-06 14:09] LABS: Troponin I < 0.012 ng/ml
[2024-07-06 14:14] LABS: ALT (SGPT) 11 U/L (0-35); AST (SGOT) 14 U/L (14-36); Albumin 3.8 g/dl (3.5-5.0); Alkaline Phosphatase 135 U/L (38-126); Blood Urea Nitrogen 26 mg/dl (7-17); Calcium 8.7 mg/dl (8.4-10.2); Carbon Dioxide 28 mmol/L (22-30); Chloride 104 mmol/L (98-107); Estimated Creatinine Clearance 37 ml/min; Glucose 165 mg/dl (70-99); Potassium 3.8 mmol/L (3.5-5.1); Sodium 142 mmol/L (135-145); Total Bilirubin 0.6 mg/dl (0.2-1.3); Total Protein 6.7 g/dl (6.3-8.2); eGFR 48.33
[2024-07-06] MEDS: KEFLEX 500 MG PO (14:53)
== END 2024-07-06 15:15 | disposition home or self-care (01) ==
LOC: EMR 12:53
PROVIDERS: Physician Assistant; EMERGENCY PHYSICIAN Student in an Organized Health Care Education/Training Program; FAMILY PHYSICIAN Internal Medicine
DX: L03.116 Cellulitis of left lower limb (principal); L03.115 Cellulitis of right lower limb; E11.22 Type 2 diabetes mellitus with diabetic chronic kidney disease; N18.30 Chronic kidney disease, stage 3 unspecified; E03.9 Hypothyroidism, unspecified; I89.0 Lymphedema, not elsewhere classified; I12.9 Hypertensive chronic kidney disease with stage 1 through stage 4 chronic kidney disease, or unspecified chronic kidney disease; Z87.891 Personal history of nicotine dependence
CPT/HCPCS: 99284; 80053; 84484; 85025; 93005

== ENCOUNTER → 2024-07-08 18:57 | Outpatient (REF) | payer MEDICARE, SELFPAY | LOC: RAD 18:57 | PROVIDERS: ATTENDING PHYSICIAN Nurse Practitioner Adult Health | DX: M25.512 Pain in left shoulder (principal) | CPT/HCPCS: 73030 ==

== ENCOUNTER 2024-09-09 14:51 | Outpatient (RCR) | payer MEDICARE, SELFPAY | END 2024-09-09 23:59 | disposition home or self-care (01) | LOC: RPT 14:51 | PROVIDERS: ATTENDING PHYSICIAN Internal Medicine | DX: I89.0 Lymphedema, not elsewhere classified (principal); R60.0 Localized edema; R32 Unspecified urinary incontinence; M62.81 Muscle weakness (generalized) | CPT/HCPCS: 97110; 97140; 97163; 97530 ==

== ENCOUNTER 2024-09-30 14:52 | Outpatient (RCR) | payer MEDICARE, SELFPAY | END 2024-09-30 23:59 | disposition home or self-care (01) | LOC: RPT 14:52 | PROVIDERS: ATTENDING PHYSICIAN Internal Medicine | DX: I89.0 Lymphedema, not elsewhere classified (principal); R60.0 Localized edema; R32 Unspecified urinary incontinence; M62.81 Muscle weakness (generalized); Z73.6 Limitation of activities due to disability | CPT/HCPCS: 97110; 97140; 97530 ==

== ENCOUNTER 2024-10-14 15:14 | Outpatient (RCR) | payer MEDICARE, SELFPAY | END 2024-10-15 07:36 | disposition home or self-care (01) | LOC: RPT 15:14 | PROVIDERS: ATTENDING PHYSICIAN Internal Medicine | DX: I89.0 Lymphedema, not elsewhere classified (principal); R60.0 Localized edema; R32 Unspecified urinary incontinence; M62.81 Muscle weakness (generalized); Z73.6 Limitation of activities due to disability | CPT/HCPCS: 97110; 97140; 97530 ==

== ENCOUNTER → 2024-10-22 10:07 | Outpatient (REF) | payer MEDICARE, SELFPAY ==
[2024-10-22 11:48] LABS: % Basophils 0.5 % (0-2); % Eosinophils 4.6 % (0-6); % Immature Granulocytes 0.3 % (0-0.5); % Lymphocytes 14.8 % (20.5-51.1); % Monocytes 5.9 % (1.7-9.3); % Neutrophils 73.9 % (42.2-75.2); Absolute Eosinophils 0.4 10^3/uL (0-0.7); Absolute Lymphocytes 1.1 10^3/uL (1.2-3.4); Absolute Monocytes 0.5 10^3/uL (0.1-0.6); Absolute Neutrophils 5.6 10^3/uL (1.4-6.5); Mean Corp Hgb Conc. 32.4 g/dL (33.0-37.0); Mean Corpuscular Hgb 28.6 pg (27.0-31.0); Mean Corpuscular Volume 88.1 fL (81.0-99.0); Mean Platelet Volume 11.1 fL (7.4-10.4); Nucleated Red Blood Cells % 0 %; Platelet Count 123 10^3/uL (130-400); Red Cell Dist. Width 15.3 % (11.5-14.5); White Blood Cell Count 7.6 10^3/uL (4.8-10.8)
[2024-10-22 12:24] LABS: ALT (SGPT) < 10 U/L (0-35); AST (SGOT) 14 U/L (14-36); Albumin 3.8 g/dl (3.5-5.0); Alkaline Phosphatase 180 U/L (38-126); Blood Urea Nitrogen 22 mg/dl (7-17); Carbon Dioxide 29 mmol/L (22-30); Chloride 101 mmol/L (98-107); Glucose 132 mg/dl (70-99); HDL Cholesterol 44 mg/dl; LDL Cholesterol, Calculated 71 mg/dl; Potassium 3.5 mmol/L (3.5-5.1); Sodium 139 mmol/L (135-145); Total Bilirubin 1.2 mg/dl (0.2-1.3); Total Cholesterol 133 mg/dl (50-199); Total Protein 6.8 g/dl (6.3-8.2); Triglyceride 90 mg/dl (10-149); Very Low Density Lipoprotein 18 mg/dl (0-30); eGFR 54.19
[2024-10-22 12:46] LABS: TSH Reflex To Free T4 2.14 uIU/ml (0.47-4.68)
[2024-10-22 13:02] LABS: Glycohemoglobin (HgbA1c) 6.7 % (4.0-5.6)
== END ==
LOC: REG 10:07
PROVIDERS: ATTENDING PHYSICIAN Internal Medicine
DX: E11.22 Type 2 diabetes mellitus with diabetic chronic kidney disease (principal); N18.32 Chronic kidney disease, stage 3b; R94.6 Abnormal results of thyroid function studies; E03.9 Hypothyroidism, unspecified
CPT/HCPCS: 36415; 80053; 80061; 83036; 84443; 85025

== ENCOUNTER → 2024-12-24 10:46 | Outpatient (REF) | payer MEDICARE, SELFPAY ==
[2024-12-24 11:56] LABS: % Basophils 0.8 % (0-2); % Eosinophils 5.2 % (0-6); % Immature Granulocytes 0.3 % (0-0.5); % Lymphocytes 15.5 % (20.5-51.1); % Monocytes 5.8 % (1.7-9.3); % Neutrophils 72.4 % (42.2-75.2); Absolute Basophils 0.1 10^3/uL (0-0.2); Absolute Eosinophils 0.4 10^3/uL (0-0.7); Absolute Lymphocytes 1.2 10^3/uL (1.2-3.4); Absolute Monocytes 0.5 10^3/uL (0.1-0.6); Absolute Neutrophils 5.7 10^3/uL (1.4-6.5); Hematocrit 37.4 % (37.0-47.0); Hemoglobin 11.9 g/dL (12.0-16.0); Mean Corp Hgb Conc. 31.8 g/dL (33.0-37.0); Mean Corpuscular Hgb 28.7 pg (27.0-31.0); Mean Corpuscular Volume 90.1 fL (81.0-99.0); Mean Platelet Volume 10.6 fL (7.4-10.4); Nucleated Red Blood Cells % 0 %; Platelet Count 131 10^3/uL (130-400); Red Blood Cell Count 4.15 10^6/uL (4.20-5.40); Red Cell Dist. Width 14.8 % (11.5-14.5); White Blood Cell Count 7.8 10^3/uL (4.8-10.8)
[2024-12-24 14:13] LABS: ALT (SGPT) < 10 U/L (0-35); AST (SGOT) 14 U/L (14-36); Albumin 3.8 g/dl (3.5-5.0); Alkaline Phosphatase 154 U/L (38-126); Blood Urea Nitrogen 22 mg/dl (7-17); Calcium 9.1 mg/dl (8.4-10.2); Carbon Dioxide 28 mmol/L (22-30); Chloride 109 mmol/L (98-107); GGTP 18 U/L (12-43); Glucose 116 mg/dl (70-99); Potassium 4.1 mmol/L (3.5-5.1); Sodium 144 mmol/L (135-145); Total Bilirubin 0.9 mg/dl (0.2-1.3); Total Protein 6.8 g/dl (6.3-8.2); eGFR 54.19
== END ==
LOC: REG 10:46
PROVIDERS: ATTENDING PHYSICIAN Internal Medicine
DX: Z00.00 Encounter for general adult medical examination without abnormal findings (principal); R74.8 Abnormal levels of other serum enzymes; D69.6 Thrombocytopenia, unspecified
CPT/HCPCS: 36415; 80053; 82977; 85025

== ENCOUNTER 2025-03-03 08:27 | Outpatient (RCR) | payer MEDICARE, SELFPAY | END 2025-03-03 23:59 | disposition home or self-care (01) | LOC: RPT 08:27 | PROVIDERS: ATTENDING PHYSICIAN Internal Medicine | DX: I89.0 Lymphedema, not elsewhere classified (principal); I87.2 Venous insufficiency (chronic) (peripheral); R60.0 Localized edema; M62.81 Muscle weakness (generalized); Z73.6 Limitation of activities due to disability | CPT/HCPCS: 97110; 97163; 97530 ==

== ENCOUNTER 2025-04-07 11:50 | Outpatient (RCR) | payer MEDICARE, SELFPAY | END 2025-04-07 23:59 | disposition home or self-care (01) | LOC: RPT 11:50 | PROVIDERS: ATTENDING PHYSICIAN Internal Medicine | DX: I89.0 Lymphedema, not elsewhere classified (principal); I87.2 Venous insufficiency (chronic) (peripheral); R60.0 Localized edema; M62.81 Muscle weakness (generalized); Z73.6 Limitation of activities due to disability | CPT/HCPCS: 97110; 97140; 97530 ==

== ENCOUNTER → 2025-04-29 08:56 | Outpatient (REF) | payer MEDICARE, SELFPAY ==
[2025-04-29 10:02] LABS: Hematocrit 37.5 % (37.0-47.0); Hemoglobin 12.0 g/dL (12.0-16.0); Mean Corp Hgb Conc. 32.0 g/dL (33.0-37.0); Mean Corpuscular Volume 89.1 fL (81.0-99.0); Nucleated Red Blood Cells % 0 %; Platelet Count 111 10^3/uL (130-400); Red Cell Dist. Width 15.0 % (11.5-14.5)
[2025-04-29 11:02] LABS: ALT (SGPT) < 10 U/L (0-35); AST (SGOT) 15 U/L (14-36); Albumin 3.9 g/dl (3.5-5.0); Alkaline Phosphatase 150 U/L (38-126); Blood Urea Nitrogen 19 mg/dl (7-17); Calcium 9.6 mg/dl (8.4-10.2); Carbon Dioxide 30 mmol/L (22-30); Chloride 105 mmol/L (98-107); Glucose 135 mg/dl (70-99); Potassium 4.5 mmol/L (3.5-5.1); Sodium 144 mmol/L (135-145); Total Protein 7.3 g/dl (6.3-8.2); eGFR 54.19
[2025-04-29 11:50] LABS: Glycohemoglobin (HgbA1c) 6.7 % (4.0-5.6)
== END ==
LOC: REG 08:56
PROVIDERS: ATTENDING PHYSICIAN Internal Medicine
DX: I50.9 Heart failure, unspecified (principal); N18.32 Chronic kidney disease, stage 3b; E11.22 Type 2 diabetes mellitus with diabetic chronic kidney disease
CPT/HCPCS: 36415; 80053; 83036; 84439; 84443; 85025

== ENCOUNTER 2025-05-12 14:25 | Outpatient (RCR) | payer MEDICARE, SELFPAY | END 2025-05-12 23:59 | disposition home or self-care (01) | LOC: RPT 14:25 | PROVIDERS: ATTENDING PHYSICIAN Internal Medicine | DX: I89.0 Lymphedema, not elsewhere classified (principal); I87.2 Venous insufficiency (chronic) (peripheral); R60.0 Localized edema; M62.81 Muscle weakness (generalized); Z73.6 Limitation of activities due to disability | CPT/HCPCS: 97110; 97140; 97530; 97535 ==

== ENCOUNTER 2025-07-15 11:10 | Emergency (ER) | payer MEDICARE, SELFPAY ==
[2025-07-15] VITALS (9 sets, daily range): BP systolic 124–137; BP diastolic 51–78; BMI 27.6
[2025-07-15 12:13] LABS: Hematocrit 36.6 % (37.0-47.0); Hemoglobin 11.3 g/dL (12.0-16.0); Mean Corp Hgb Conc. 30.9 g/dL (33.0-37.0); Mean Corpuscular Volume 88.4 fL (81.0-99.0); Nucleated Red Blood Cells % 0 %; Platelet Count 118 10^3/uL (130-400); Red Cell Dist. Width 14.8 % (11.5-14.5)
--- NOTE | 2025-07-15 12:14 | ED.GENMED ---
History of Present Illness
General
Chief Complaint: Dizziness
Source: patient
Exam Limitations: none
Time Seen by Provider: 07/15/25 12:13
Nursing documentation reviewed up to this point in time: agreed with
History of Present Illness
History of Present Illness:
89 yo female w h/o vertigo, HTN, HLD, stage III kidney disease, NIDDM, hypothyroidism, remote history of cervical cancer with radical hysterectomy, appendectomy presents presenting with dizziness. The onset occurred yesterday morning after breakfast
when the patient looked down, the ground appeared to move. The dizziness persisted after she laid down in a recliner and has been constant, with moving, there when she got up during the night to urinate, and this a.m. on awakening. She has history
of balance problems, uses walker and states no worsening of her balance, states that the room spins, She reports no headaches, recent head injuries, no vision changes, nasal symptoms, sore throat, cough, ear pain, nausea, or vomiting. The patient
admits to frequent urination and uses incontinence pads. She does not have diarrhea or constipation.
Past History
Past History
ED Past Medical History: Cancer (Cervical cancer), GERD, HTN, Hypercholesterolemia, NIDDM, Hypothyroidism and Other (Edema, history of pericarditis, pneumonia, polyps, stage III kidney disease, Cellulitis, UTI, Vertigo, PNA,)
ED Past Surgical History: Appendectomy, Gynecological (Radical hysterectomy, lumpectomy), Orthopedic (Back surgery) and Other (Cataract surgery, Lumpectomy, )
Social History
Tobacco: Former smoker
Alcohol: None
Drug: None
Personal:
Living: alone
Employment: Retired
Family History
Family History: Other
Review of Systems
Review of Systems
Allergies reviewed?: Yes
All Other Systems: ROS reviewed and negative except as documented in HPI and ROS
Phy Exam
Physical Exam
Physical Exam:
GENERAL: No acute distress. A&Ox3.
CONSTITUTIONAL: Afebrile.
EYES: clear, conjunctivae normal
ENMT: moist mucus membranes, Pharynx nl
RESPIRATORY: Regular respirations, nonlabored, lungs clear.
CARDIOVASCULAR: Regular rate and rhythm, no murmurs, no rubs.
GI: Soft, nontender, normal BS
MUSCULOSKELETAL: Moves with ease. Well perfused.
SKIN: Warm, dry, pink, bilateral lower extremity lymphedema
PSYCH: Normal mood and affect. Well kept, interactive and appropriate
NEUROLOGIC: Awake, alert and oriented. speech clear. Cranial nerves II through XII intact. No focal neurological deficits. [id number] intact
Course
Orders/Labs/Results
Orders:
Orders
07/15/25 11:14
Electrocardiogram (*1) Urgent
Reason for Study: Chest Pain
EKG- Treatment ONCE
07/15/25 11:53
CBC/With Diff [Complete Blood Count/With Diff] Urgent
Comprehensive Metabolic Panel Urgent
TSH Reflex To Free T4 Urgent
07/15/25 12:32
CT Head W/o Iv Contrast Urgent
Comment:
Reason For Exam: dizziness
07/15/25 13:44
Physical Therapy Consult [Pt Eval And Treat] Urgent
Treatment: Vestibular evaluation
Activity Level: As Tolerated
Abnormal Lab Results
07/15/25
11:53
RBC 4.14 L 10^6/uL
(4.20-5.40)
Hgb 11.3 L g/dL
(12.0-16.0)
Hct 36.6 L %
(37.0-47.0)
MCHC 30.9 L g/dL
(33.0-37.0)
RDW 14.8 H %
(11.5-14.5)
Plt Count 118 L 10^3/uL
(130-400)
MPV 10.6 H fL
(7.4-10.4)
Absolute Lymphs (auto) 0.9 L 10^3/uL
(1.2-3.4)
Neutrophils % 75.4 H %
(42.2-75.2)
Lymphocytes % 11.9 L %
(20.5-51.1)
Potassium 3.4 L mmol/L
(3.5-5.1)
BUN 18 H mg/dl
(7-17)
Glucose 124 H mg/dl
(70-99)
AST 13 L U/L
(14-36)
Alkaline Phosphatase 152 H U/L
(38-126)
07/15/25 11:53
07/15/25 11:53
Vital Signs
Initial and Last Documented VS:
Initial Vital Signs
Temp Pulse Resp BP Pulse Ox
97.6 F 75 20 137/60 95
07/15/25 11:12 07/15/25 11:12 07/15/25 11:12 07/15/25 11:12 07/15/25 11:12
Last Documented Vital Signs
Temp Pulse Resp BP Pulse Ox
98 F 72 16 128/75 95
07/15/25 17:56 07/15/25 17:56 07/15/25 17:56 07/15/25 17:56 07/15/25 17:56
MDM/Problems Addressed
Differential Diagnosis Includes:
BPPV, vestibular neuritis, Menier's
CVA
MDM/Problems Addressed:
89 yo female w h/o vertigo, HTN, HLD, stage III kidney disease, NIDDM, hypothyroidism, remote history of cervical cancer with radical hysterectomy, appendectomy presents presenting with dizziness. The onset occurred yesterday morning after breakfast
the patient looked down, the ground appeared to move. The dizziness improved after she laid down in a recliner, it has been constant, with moving, there when she got up during the night to urinate, and this a.m. on awakening. She has history of
balance problems, uses walker and states no worsening of her balance, states that the room spins, She reports no headaches, recent head injuries, no vision changes, nasal symptoms, sore throat, cough, ear pain, nausea, or vomiting. The patient
admits to frequent urination and uses incontinence pads. She does not have diarrhea or constipation.
EKG: NSR
No n/v, +room spinning, no focal neurological deficits.
CBC, CMP with no clinically significant abnormalities
Head CT shows nothing acute
2:30 p.m.
Pt work up here basically neg.
P/T eval showed no vertigo, OOB and ambulating well for P/T, not fall risk.
Pt from [facility], I called and they have no medical/nursing care for her as she is in independent living.
From a medical standpoint, stable to go home.
Message left on daughter's phone to call back
Pt sitting up eating meal. States she has no dizziness or room spinning
Spoke with daughter who does not get off work until 7 PM. 4 hours from now, patient will have to wait for daughter to pick her up.
5:20 p.m.
Pt family member here to pick her up.
*Pulse Oximetry
SaO2: 95
Oxygen Mode of Delivery: Room air
Patient hypoxic: no
*EKG
EKG Intrepretation Date: 07/15/25
Interpretation: normal
Heart Rate: 71
Rate: normal
Rhythm: sinus
[place]: normal axis
Interval: normal interval
QRS Pattern: normal QRS
Ischemia: no ischemia
*Critical Care Note
Total Time (30-74mins, 75-104mins- exclusive of procedures): Not Applicable
ED Attending Note
-
Portions of this chart may have been created with voice recognition software.� Occasional wrong word or��sound alike� substitutions may have occurred due to the inherent limitations of voice recognition software.
Discharge Plan
Departure
Patient Disposition: Home (Routine Discharge)
Date of Disposition: 07/15/25
Time of Disposition: 17:23
Patient with high blood pressure during this ER visit?: No
Condition: Good
Discharge Problem:
Episode of dizziness
Instructions: Dizziness
Prescriptions:
No Action
atorvastatin 40 MG tablet
40 mg PO HS
aspirin 81 MG tablet,delayed release (DR/EC)
81 mg PO DAILY
levothyroxine 50 MCG tablet
50 mcg PO DAILY
cholecalciferol (vitamin D3) 1,000 UNITS tablet
1,000 units PO DAILY
melatonin 3 MG tablet
6 mg PO HS
methenamine hippurate 1 gram tablet
1 g PO BID
famotidine [Pepcid] 20 mg Tablet
20 mg PO HS
ascorbic acid (vitamin C) [Vitamin C] 500 mg Tablet
500 mg PO DAILY
Myrbetriq 50 mg tablet extended release 24 hr
50 mg PO DAILY
nifedipine 30 mg Tablet Extended Release
30 mg PO DAILY Qty: 30 0RF
acetaminophen [Tylenol Extra Strength] 500 mg Tablet
1,000 mg PO Q6HPRN PRN (Reason: mild to mod pain) Qty: 10 0RF
furosemide 20 mg Tablet
20 mg PO DAILY Qty: 30 0RF
cyanocobalamin (vitamin B-12) 1,000 mcg Tablet
1,000 mcg PO DAILY Qty: 30 0RF
cefuroxime axetil 250 mg tablet
250 mg PO BID Qty: 8 0RF
cephalexin 500 mg capsule
500 mg PO QID 7 Days Qty: 28 0RF
Referrals:
Vianey Bailon NP [Family Provider, Internal Medicine]
Activity Restrictions/Additional Instructions:
As we discussed, nothing worrisome in your workup here today.
Call your PCP and make follow up appointment within this next week.
Interventions
Interventions:
*Risk Screen - Suicide Last Done: 07/15/25 11:12
*General Assessment Last Done: 07/15/25 11:12
*Neglect/Abuse Screening Last Done: 07/15/25 11:12
[facility] Fall Risk Assessment Tool Last Done: 07/15/25 11:10
*Nursing Disposition Last Done: 07/15/25 17:57
ED- Neurological Assessment Last Done: 07/15/25 11:41
ED Swallowing Screen Last Done: 07/15/25 11:40
Discharge Date and Time
Discharge Date/Time: 07/15/25 17:57
Print Language: [id number]
[2025-07-15 12:29] LABS: ALT (SGPT) < 10 U/L (0-35); AST (SGOT) 13 U/L (14-36); Albumin 3.5 g/dl (3.5-5.0); Alkaline Phosphatase 152 U/L (38-126); Blood Urea Nitrogen 18 mg/dl (7-17); Calcium 8.4 mg/dl (8.4-10.2); Carbon Dioxide 29 mmol/L (22-30); Chloride 106 mmol/L (98-107); Estimated Creatinine Clearance 37 ml/min; Glucose 124 mg/dl (70-99); Potassium 3.4 mmol/L (3.5-5.1); Sodium 139 mmol/L (135-145); Total Protein 6.9 g/dl (6.3-8.2); eGFR 53.85
== END 2025-07-15 17:57 | disposition home or self-care (01) ==
LOC: EMR 11:10
PROVIDERS: Registered Nurse; EMERGENCY PHYSICIAN Emergency Medicine; FAMILY PHYSICIAN Internal Medicine
DX: R42 Dizziness and giddiness (principal); E78.00 Pure hypercholesterolemia, unspecified; I12.9 Hypertensive chronic kidney disease with stage 1 through stage 4 chronic kidney disease, or unspecified chronic kidney disease; E11.22 Type 2 diabetes mellitus with diabetic chronic kidney disease; N18.30 Chronic kidney disease, stage 3 unspecified; E03.9 Hypothyroidism, unspecified; Z85.41 Personal history of malignant neoplasm of cervix uteri; Z87.01 Personal history of pneumonia (recurrent); Z87.891 Personal history of nicotine dependence; Z90.49 Acquired absence of other specified parts of digestive tract; Z90.710 Acquired absence of both cervix and uterus; Z98.49 Cataract extraction status, unspecified eye
CPT/HCPCS: 99284; 70450; 80053; 84443; 85025; 93005; 96361; 96374; 96375

== ENCOUNTER 2025-08-05 10:40 | Emergency (ER) | payer MEDICARE, SELFPAY ==
[2025-08-05 10:48] VITALS: BP 124/79
[2025-08-05 10:51] VITALS: BP 124/79
[2025-08-05 10:53] VITALS: BMI 28.5
[2025-08-05 11:00] VITALS: BP 143/60
--- NOTE | 2025-08-05 11:28 | ED.GENMED ---
History of Present Illness
General
Chief Complaint: Dizziness
Time Seen by Provider: 08/05/25 10:41
History of Present Illness
History of Present Illness:
This is an 89-year-old female with past medical history of vertigo, hypothyroidism, CHF, hypertension, CKD who presents from her independent living facility complaining of dizziness that began this morning when she woke up and sat up in bed.
Reports that this is consistent with prior episodes of vertigo. No additional symptoms. She was recently seen in the emergency department for the same symptoms and workup at that time was negative. She has been going to PT as an outpatient for
her vertigo and was scheduled to see her primary care doctor today in follow-up for this problem. Denies any nausea, vomiting, blurry vision. Nonfocal neurologic exam. Denies loss of consciousness. No recent falls.
Past History
Past History
ED Past Medical History: Cancer (Cervical cancer), GERD, HTN, Hypercholesterolemia, NIDDM, Hypothyroidism and Other (Edema, history of pericarditis, pneumonia, polyps, stage III kidney disease, Cellulitis, UTI, Vertigo, PNA,)
ED Past Surgical History: Appendectomy, Gynecological (Radical hysterectomy, lumpectomy), Orthopedic (Back surgery) and Other (Cataract surgery, Lumpectomy, )
Social History
Tobacco: Former smoker
Alcohol: None
Drug: None
Personal:
Living: alone
Employment: Retired
Family History
Family History: Other
Phy Exam
General Physical Exam
General Presentation: well appearing and no apparent distress
General Skin: warm and dry
General Habitus: normal
General Mental: alert
General Hydration: appears well hydrated
ENT Exam
ENT Exam: EOMI, pharynx normal, neck supple and normocephalic
Eye Exam
Eye Exam: PERRL, cornea clear and conjunctiva normal
Cardiovascular Exam
Cardiovascular Exam: regular rate/rhythm, no edema, no murmur and normal peripheral pulses
Pulmonary Exam
Pulmonary Exam: lungs clear, no respiratory distress, no rales, no crackles, no rhonchi, no stridor, no wheezing and no cough
Gastrointestinal Exam
Gastrointestinal Exam: normal bowel sounds, non tender, soft, no organomegaly, no pulsatile mass and non distended
Neurological Exam
Neurological Exam: alert, oriented x3, no motor deficits and speech normal
Musculoskeletal Exam
Musculoskeletal Exam: full ROM and no edema
Skin Exam
Skin Exam: normal color, warm/dry, no rash and no petechia
Psychiatric Exam
Psychiatric Exam: normal mood/affect
Course
Orders/Labs/Results
Orders:
Orders
08/05/25 10:43
Electrocardiogram (*1) Urgent
Reason for Study: Vertigo / Dizzy
EKG- Treatment ONCE
08/05/25 10:59
Meclizine [Antivert] 12.5 mg PO NOW STA
08/05/25 11:28
Complete Blood Count/With Diff Urgent
Comprehensive Metabolic Panel Urgent
Abnormal Lab Results
08/05/25
11:28
RBC 3.97 L 10^6/uL
(4.20-5.40)
Hgb 11.2 L g/dL
(12.0-16.0)
Hct 34.5 L %
(37.0-47.0)
MCHC 32.5 L g/dL
(33.0-37.0)
RDW 15.5 H %
(11.5-14.5)
Plt Count 107 L 10^3/uL
(130-400)
MPV 11.2 H fL
(7.4-10.4)
Absolute Lymphs (auto) 1.0 L 10^3/uL
(1.2-3.4)
Lymphocytes % 12.4 L %
(20.5-51.1)
Eosinophils % 7.3 H %
(0-6)
BUN 25 H mg/dl
(7-17)
Glucose 131 H mg/dl
(70-99)
Alkaline Phosphatase 134 H U/L
(38-126)
08/05/25 11:28
08/05/25 11:28
Vital Signs
Initial and Last Documented VS:
Initial Vital Signs
Pulse Resp Pulse Ox
68 16 98
08/05/25 10:47 08/05/25 10:47 08/05/25 10:47
Last Documented Vital Signs
Temp Pulse Resp BP Pulse Ox
36.4 C 69 17 143/60 93
08/05/25 10:51 08/05/25 11:00 08/05/25 11:00 08/05/25 11:00 08/05/25 11:30
MDM/Problems Addressed
Differential Diagnosis Includes:
Patient presents with nonfocal neurologic exam. She was actually supposed to follow-up with her primary care office for her vertigo today but facility staff sent her to the ER when she complained of dizziness. States that dizziness is improved and
only present with movement. Given meclizine with further improvement in her symptoms. Remains at baseline. Patient was recently in the ER and CT head was obtained and nonrevealing for any intracranial pathology at that time. The CT was reviewed
by me today. Lab work obtained and reviewed today unremarkable for any obvious infection or electrolyte derangements. Remained hemodynamically stable throughout her ER course. Will discharge patient back to [facility] and she is continue to
follow-up with primary care physician regarding her vertigo and work with PT as an outpatient. Return precautions discussed
*Pulse Oximetry
SaO2: 93
Oxygen Mode of Delivery: Room air
Patient hypoxic: no
*Critical Care Note
Total Time (30-74mins, 75-104mins- exclusive of procedures): Not Applicable
ED Attending Note
-
Portions of this chart may have been created with voice recognition software.� Occasional wrong word or��sound alike� substitutions may have occurred due to the inherent limitations of voice recognition software.
Discharge Plan
Departure
Patient Disposition: Home (Routine Discharge)
Date of Disposition: 08/05/25
Time of Disposition: 13:37
Patient with high blood pressure during this ER visit?: No
Discharge Problem:
Vertigo, Dizziness
Instructions: Vertigo (a Type of Dizziness) (DC)
Prescriptions:
No Action
atorvastatin 40 MG tablet
40 mg PO HS
aspirin 81 MG tablet,delayed release (DR/EC)
81 mg PO DAILY
levothyroxine 50 MCG tablet
50 mcg PO DAILY
cholecalciferol (vitamin D3) 1,000 UNITS tablet
1,000 units PO DAILY
melatonin 3 MG tablet
6 mg PO HS
methenamine hippurate 1 gram tablet
1 g PO BID
famotidine [Pepcid] 20 mg Tablet
20 mg PO HS
ascorbic acid (vitamin C) [Vitamin C] 500 mg Tablet
500 mg PO DAILY
Myrbetriq 50 mg tablet extended release 24 hr
50 mg PO DAILY
nifedipine 30 mg Tablet Extended Release
30 mg PO DAILY Qty: 30 0RF
acetaminophen [Tylenol Extra Strength] 500 mg Tablet
1,000 mg PO Q6HPRN PRN (Reason: mild to mod pain) Qty: 10 0RF
furosemide 20 mg Tablet
20 mg PO DAILY Qty: 30 0RF
cyanocobalamin (vitamin B-12) 1,000 mcg Tablet
1,000 mcg PO DAILY Qty: 30 0RF
cefuroxime axetil 250 mg tablet
250 mg PO BID Qty: 8 0RF
cephalexin 500 mg capsule
500 mg PO QID 7 Days Qty: 28 0RF
Referrals:
Vianey Bailon NP [Family Provider, Internal Medicine]
Activity Restrictions/Additional Instructions:
Continue to follow-up with your primary care physician regarding your vertigo. Please return to the ER if symptoms return or worsen.
Interventions
Interventions:
*General Assessment Last Done: 08/05/25 10:53
*Neglect/Abuse Screening Last Done: 08/05/25 10:53
*ED COVID-19 Vaccine History Last Done: 08/05/25 10:53
*ED Influenza Vaccine History Last Done: 08/05/25 10:53
[facility] Fall Risk Assessment Tool Last Done: 08/05/25 10:53
*Risk Screen - Suicide (C-SSRS) Last Done: 08/05/25 10:53
ED- Neurological Assessment Last Done: 08/05/25 10:53
ED- Cardiac Assessment Last Done: 08/05/25 11:08
Discharge Date and Time
Print Language: IRISH
[2025-08-05] MEDS: ANTIVERT 12.5 MG PO (11:34)
[2025-08-05 11:47] LABS: Hematocrit 34.5 % (37.0-47.0); Hemoglobin 11.2 g/dL (12.0-16.0); Mean Corp Hgb Conc. 32.5 g/dL (33.0-37.0); Mean Corpuscular Volume 86.9 fL (81.0-99.0); Nucleated Red Blood Cells % 0 %; Platelet Count 107 10^3/uL (130-400); Red Cell Dist. Width 15.5 % (11.5-14.5)
[2025-08-05 12:00] VITALS: BP 146/67
[2025-08-05 12:03] LABS: ALT (SGPT) < 10 U/L (0-35); AST (SGOT) 14 U/L (14-36); Albumin 3.6 g/dl (3.5-5.0); Alkaline Phosphatase 134 U/L (38-126); Blood Urea Nitrogen 25 mg/dl (7-17); Calcium 8.6 mg/dl (8.4-10.2); Carbon Dioxide 28 mmol/L (22-30); Chloride 104 mmol/L (98-107); Estimated Creatinine Clearance 42 ml/min; Glucose 131 mg/dl (70-99); Potassium 3.7 mmol/L (3.5-5.1); Sodium 138 mmol/L (135-145); Total Protein 6.8 g/dl (6.3-8.2); eGFR 53.85
[2025-08-05 13:00] VITALS: BP 148/70
== END 2025-08-05 16:15 | disposition home or self-care (01) ==
LOC: EMR 10:40
PROVIDERS: Surgery Trauma Surgery; EMERGENCY PHYSICIAN Emergency Medicine; FAMILY PHYSICIAN Internal Medicine
DX: R42 Dizziness and giddiness (principal); E11.22 Type 2 diabetes mellitus with diabetic chronic kidney disease; I13.0 Hypertensive heart and chronic kidney disease with heart failure and stage 1 through stage 4 chronic kidney disease, or unspecified chronic kidney disease; N18.30 Chronic kidney disease, stage 3 unspecified; I50.9 Heart failure, unspecified; E78.00 Pure hypercholesterolemia, unspecified; E03.9 Hypothyroidism, unspecified; K21.9 Gastro-esophageal reflux disease without esophagitis; Z79.82 Long term (current) use of aspirin; Z79.84 Long term (current) use of oral hypoglycemic drugs; Z85.41 Personal history of malignant neoplasm of cervix uteri; Z87.891 Personal history of nicotine dependence
CPT/HCPCS: 99284; 80053; 85025; 93005